=== PATIENT | female | born 1945 | race Caucasian/White ===

== ENCOUNTER 2020-01-18 21:48 | Inpatient (IN) | payer MEDICARE, MEDICAID ==
[~2020-01-18] VITALS: Ht 175.3 cm; Wt 121.1 kg
[~2020-01-18 21:48] MED LIST: ASPI-498 PO; BENA10TA9 PO; DIP25C PO; FUR40T PO; NITR0.4S29 SL; POT20T PO
[2020-01-18] MEDS ORDERED: ACETAMINOPHEN 500 MG TAB PO ONE (22:15)
[2020-01-18] MEDS ORDERED: SODIUM CHLORIDE 0.9% 500 ML IV ONE (22:15)
[2020-01-18] MEDS ORDERED: FUROSEMIDE 40 MG/4 ML VIAL IV ONE (22:45)
[2020-01-18 23:02] LABS: Basophils # (auto) 0 10 ^3/uL (0-0.2); Basophils % (auto) 0.5 % (0.0-2.0); Eosinophils # (auto) 0.3 10 ^3/uL (0-0.8); Eosinophils % (auto) 4.1 % (0.0-7.0); Hematocrit 42.3 % (36.0-46.0); Lymphocytes # (auto) 1.4 10 ^3/uL (0.4-5.4); Lymphocytes % (auto) 21.8 % (10.0-50.0); Mean Corpuscular Hemoglobin 31.2 pg (28.0-32.0); Mean Corpuscular Hgb Conc. 33.1 g/dL (32.0-36.0); Mean Corpuscular Volume 94.2 fL (80.0-100.0); Monocytes # (auto) 0.5 10 ^3/uL (0-1.3); Monocytes % (auto) 7.4 % (0.0-12.0); Neutrophils # (auto) 4.4 10 ^3/uL (1.6-8.6); Neutrophils % (auto) 66.2 % (37.0-80.0); Nucleated Red Blood Cells % 0.1 %; Platelet Count (auto) 194 10^3/uL (140-450); Red Blood Cells 4.49 10^6/uL (4.0-5.20); Red Cell Distribution Width 12.7 % (11.8-14.3); White Blood Cell 6.6 10^3/uL (4.4-10.8)
[2020-01-18 23:13] LABS: INR 1.01 (0.9-1.15); Partial Thromboplastin Time 25.2 sec (23.64-32.05)
[2020-01-18 23:14] LABS: Alanine Aminotransferase 17 U/L (13-56); Albumin 3.5 g/dL (3.4-5.0); Anion Gap 3 (5-15); Aspartate Aminotransferase 18 U/L (15-37); Blood Urea Nitrogen 12 mg/dL (7-18); Calcium 8.7 mg/dL (8.5-10.1); Carbon Dioxide 31 mmol/L (21-32); Chloride 104 mmol/L (98-107); GFR African American 163 mL/min; GFR Non-African American 134 mL/min; Glucose 134 mg/dL (74-106); Potassium 3.9 mmol/L (3.5-5.1); Sodium 138 mmol/L (136-145)
[2020-01-18 23:19] LABS: Alkaline Phosphatase 78 U/L (45-117); Bilirubin, Total 0.3 mg/dL (0.2-1.0); Total Protein 7.2 g/dL (6.4-8.2)
[2020-01-19 00:28] LABS: Urine Amorphous Crystal FEW /hpf (None Seen); Urine Bacteria FEW /hpf (None Seen); Urine Blood Negative /uL (Negative); Urine Specific Gravity 1.007 (1.001-1.035); Urine WBC 1 /hpf (0 - 5)
[2020-01-19] MEDS ORDERED: AZITHROMYCIN 500MG/ 250ML 250 ML IV ONE (00:30)
[2020-01-19] MEDS ORDERED: cefTRIAXone 1GM/50ML D5W 50 ML IV ONE (00:30)
[2020-01-19] MEDS ORDERED: ZINC SULFATE 220mg CAP or TAB PO ONE (00:30)
[2020-01-19] MEDS ORDERED: OSELTAMIVIR 75 MG CAP PO ONE (00:30)
[2020-01-19] MEDS ORDERED: SODIUM CHLORIDE 0.9% 1,000 ML IV SCH (00:55)
[2020-01-19] MEDS ORDERED: ACETAMINOPHEN 500 MG TAB PO PRN (01:00)
[2020-01-19] MEDS ORDERED: NITROGLYCERIN 0.4 MG SL TAB SL SCH (01:00)
[2020-01-19] MEDS ORDERED: IPRATROPIUM BROM 0.5 MG/2.5ML INH SOL NEB PRN (01:00)
[2020-01-19] MEDS ORDERED: hydrALAZINE HCL 25 MG TAB PO PRN (01:00)
[2020-01-19] MEDS ORDERED: ALBUTEROL SULF 2.5 MG/0.5ML(0.5%) NEB SOLN NEB PRN ×2 (01:00→18:00)
[2020-01-19] MEDS ORDERED: diphenhdrAMINE HCL 25 MG CAP PO PRN (01:00)
[2020-01-19 02:20] VITALS: BP 107/59
--- NOTE | 2020-01-19 02:20 | NUR ---
Telemetry admit from ER HOUSE,YOKO Pascal admitted to Telemetry unit after SBAR received. Patient oriented to SUDEEP BAZAN, primary RN, unit, room, bed, and unit policies regarding patient care and visiting hours. Patient now on continuous telemetry monitoring, tele box #5 and telemetry reading on arrival to unit is sinus rhythm with heart rate at 67. Patient placed on bedside oxygen, weighed by bedscale and encouraged to call as needed. All questions and concerns addressed, patient verbalized understanding. Bed is locked in lowest position, side rails x 2 are up, call light is within reach, and bed alarm is on.
--- NOTE | 2020-01-19 03:00 | NUR ---
Incentive Spirometer Educated patient on how to use and how often to use incentive spirometer, patient verbalized understanding and returned demonstration. Patient was able to raise marker to 500ml.
--- NOTE | 2020-01-19 03:34 | NUR ---
MRSA SWAB COLLECTED AND SENT TO LAB
[2020-01-19] MEDS ORDERED: FURO20TA3 PO ×2 (03:59→11:12)
[2020-01-19] MEDS ORDERED: APIX2.5T PO (03:59)
[2020-01-19] MEDS ORDERED: ALBU2TAB4 PO (03:59)
[2020-01-19] MEDS ORDERED: CLON0.1T PO (04:00)
--- NOTE | 2020-01-19 04:20 | NUR ---
Pericare Patient noted to have white vaginal discharge. Pericare provided.
--- NOTE | 2020-01-19 04:25 | NUR ---
PICTURES Patient noted to have erythema to left heel. Patient reports she has a healed pressure ulcer to left calf. Pictures taken for reference.
--- NOTE | 2020-01-19 04:30 | NUR ---
URINALYSIS COLLECTED AND SENT TO LAB.
[2020-01-19 04:56] LABS: Urine Bacteria FEW /hpf (None Seen); Urine Blood 1+ /uL (Negative); Urine Hyaline Cast MOD /lpf (0 - 2); Urine Mucus FEW (None Seen); Urine Specific Gravity 1.007 (1.001-1.035); Urine WBC 5 /hpf (0 - 5)
--- NOTE | 2020-01-19 05:50 | NUR ---
BLOOD DRAW Blood drawn and sent to lab via bullet.
[2020-01-19 06:00] VITALS: BP 127/56
[2020-01-19] MEDS ORDERED: ALBUTEROL SULF HFA 90MCG INH 200DOSE IN SCH ×3 (06:00)
[2020-01-19 06:06] LABS: Basophils # (auto) 0 10 ^3/uL (0-0.2); Basophils % (auto) 0.2 % (0.0-2.0); Eosinophils # (auto) 0.3 10 ^3/uL (0-0.8); Eosinophils % (auto) 3.2 % (0.0-7.0); Hemoglobin 13.3 g/dL (12.2-16.2); Lymphocytes # (auto) 1.2 10 ^3/uL (0.4-5.4); Lymphocytes % (auto) 15.7 % (10.0-50.0); Mean Corpuscular Hemoglobin 31.7 pg (28.0-32.0); Monocytes # (auto) 0.5 10 ^3/uL (0-1.3); Monocytes % (auto) 6.9 % (0.0-12.0); Neutrophils # (auto) 5.8 10 ^3/uL (1.6-8.6); Nucleated Red Blood Cells % 0.1 %; Platelet Count (auto) 172 10^3/uL (140-450); Red Blood Cells 4.19 10^6/uL (4.0-5.20); Red Cell Distribution Width 12.9 % (11.8-14.3); White Blood Cell 7.9 10^3/uL (4.4-10.8)
[2020-01-19 06:22] LABS: Lactic Acid w/Reflex 2.1 mmol/L (0.4-2.0); Potassium 3.5 mmol/L (3.5-5.1)
[2020-01-19 06:38] LABS: Albumin 3.2 g/dL (3.4-5.0); BUN/Creatinine Ratio 24.1; Bilirubin, Total 0.3 mg/dL (0.2-1.0); CRP High Sensitivity 0.27 mg/dL (< 0.3); Calcium 8.4 mg/dL (8.5-10.1); Magnesium 1.9 mg/dL (1.6-2.6); Total Protein 6.4 g/dL (6.4-8.2)
[2020-01-19 08:00] VITALS: BP 133/66
[2020-01-19] MEDS: ZINC SULFATE 220mg CAP or TAB PO SCH (09:27)
[2020-01-19] MEDS: FUROSEMIDE 40 MG TAB PO SCH (09:27)
[2020-01-19] MEDS: POTASSIUM CHL 20 Meq TABLET PO SCH (09:27)
[2020-01-19] MEDS: ASPirin-EC 81 mg tab PO SCH (09:27)
[2020-01-19] MEDS: CHOLECALCIFEROL (VITD3) 1,000IU=25mCg TAB PO SCH (09:28)
[2020-01-19] MEDS: ENOXAPARIN SOD 40 MG/0.4 ML SYRINGE SC SCH (09:28)
[2020-01-19] MEDS: ASCORBIC ACID 1,000 MG TAB PO SCH (09:28)
[2020-01-19] MEDS: BENAZEPRIL HCL 10 MG TAB PO SCH (09:28)
[2020-01-19] MEDS ORDERED: AZITHROMYCIN 500MG/D5WorNS 250ml IV SCH (10:00)
[2020-01-19 10:34] VITALS: BP 136/68
[2020-01-19] MEDS ORDERED: APIX5TAB PO (11:04)
[2020-01-19] MEDS ORDERED: FURO40TA4 PO ×2 (11:13→11:15)
[2020-01-19] MEDS ORDERED: ALBU0.084 NEB (11:22)
[2020-01-19] MEDS ORDERED: ALBUAER3 IN (11:29)
[2020-01-19] MEDS ORDERED: BENA10TA9 PO (11:40)
--- NOTE | 2020-01-19 11:41 | NUR ---
Received referral for Line Controller. Pt does not want to return to [facility]. Pt prefers to return home. Pt is currently waiting for results on her Covid19. Pt lives alone but has an [facility] worker who is with her 5 hours a day. She also has 4 other caregivers who she pays privately for additional care. Pt is on [address] Luz is her physician. Pt states she can't stand and only uses a gurney. Informed pt that she will have to pay privately for transport to get home. Explained to pt that psychosocial rehabilitation counselor can work on that as soon as she is cleared to return home. Addendum: 01/19/20 at 1155 by GABRIELLE GERMAN Amended: Links added.
--- NOTE | 2020-01-19 14:13 | NUR ---
PT TRANSFERRED TO ROOM 205 REPORT GIVEN TO CATA BARBOUR. NO S/S OF DISTRESS NOTED. PT TRANSFERRED FROM WHEELCHAIR TO BED.
--- NOTE | 2020-01-19 14:25 | NUR ---
Transfer from [facility] Patient arrived on floor to room. She is alert and oriented. Coarse lung sounds. She was oriented to the nurse, SHELL MOLD BONDER, room, and unit. Call light within reach. HOB elevated. Phone within reach per patient request. VS taken by SHELL MOLD BONDER. Will continue to monitor patient.
[2020-01-19 15:18] VITALS: BP 106/68
--- NOTE | 2020-01-19 17:50 | NUR ---
SOB/upset Patient is c/o SOB and said that she has asthma. She said she was on breathing treatments every 4 hours prior to coming to this floor. This nurse checked the orders and her PRN breathing treatments were D/C'd. Contacted Marcos Cabral (on-call) who ordered PRN Atrovent and Albuterol [id number]. She also keeps saying that she has a throat infection and not the flu and that it doesn't feel like the flu. This nurse had informed her that the test showed she is positive for Flu A/B and is being treated for it. She said she was hooked up to an antibiotic and wanted to know why it wasn't running right now. There is no antibiotic due at this time, the next does is due at 2200. Patient was informed. Addendum: 01/19/20 at 1753 by CATA SILVA RN Correction: there is a breathing treatment scheduled at 2200. The next antibiotic is not until 1000 tomorrow.
[2020-01-19] MEDS: IPRATROPIUM BROM 0.5 MG/2.5ML INH SOL NEB PRN ×2 (18:21→22:46)
--- NOTE | 2020-01-19 19:15 | NUR ---
Opening note pt A&Ox4. respirations are even and non labored on 2Lnc. lung sounds are coarse upon inspiration and expiration. Swanson catheter in place, without kinks, patent, and draining to gravity below bladder. pt denies pain at this time. pt is soiled, and will be cleaned and changed at this time. bed is in low locked position, call light within reach.
[2020-01-19 21:48] VITALS: BP 117/72
[2020-01-19] MEDS: ALBUTEROL SULF 2.5 MG/0.5ML(0.5%) NEB SOLN NEB SCH (22:46)
--- NOTE | 2020-01-20 05:15 | NUR ---
xray at bedside
--- NOTE | 2020-01-20 05:20 | NUR ---
pt c/o pain in bladder area. pt has fischer catheter in place. pt would like fischer removed, says it is just too painful, and she is crying in pain. Fischer removed at this time.
[2020-01-20 05:24] VITALS: BP 128/50
--- NOTE | 2020-01-20 06:25 | NUR ---
pt explains that her back is itching, wants marysol
[2020-01-20] MEDS: ALBUTEROL SULF 2.5 MG/0.5ML(0.5%) NEB SOLN NEB SCH ×3 (07:34→22:37)
[2020-01-20 08:00] VITALS: BP 114/51
[2020-01-20] MEDS ORDERED: ACETAMINOPHEN/CODEINE#3 (300/30mg) TAB PO PRN (09:15)
[2020-01-20] MEDS: BENAZEPRIL HCL 10 MG TAB PO SCH (09:54)
[2020-01-20] MEDS: FUROSEMIDE 40 MG TAB PO SCH (09:55)
[2020-01-20] MEDS: ZINC SULFATE 220mg CAP or TAB PO SCH (09:55)
[2020-01-20] MEDS: ASPirin-EC 81 mg tab PO SCH (09:55)
[2020-01-20] MEDS: OSELTAMIVIR 30 MG CAP PO SCH ×2 (09:57→22:19)
[2020-01-20] MEDS: POTASSIUM CHL 20 Meq TABLET PO SCH (10:00)
[2020-01-20] MEDS: ASCORBIC ACID 1,000 MG TAB PO SCH (10:00)
--- NOTE | 2020-01-20 10:05 | NUR ---
spoke with Dr. Sandra Luz, made aware that pt is refusing IV insertion, refusing IV antibiotic, Dr. Luz ordered to change IV antibiotic to PO, order received and read back.
[2020-01-20] MEDS: ENOXAPARIN SOD 40 MG/0.4 ML SYRINGE SC SCH (10:14)
[2020-01-20] MEDS: CHOLECALCIFEROL (VITD3) 1,000IU=25mCg TAB PO SCH (10:14)
[2020-01-20 10:18] LABS: Basophils # (auto) 0.1 10 ^3/uL (0-0.2); Basophils % (auto) 0.9 % (0.0-2.0); Eosinophils # (auto) 0.3 10 ^3/uL (0-0.8); Eosinophils % (auto) 3.5 % (0.0-7.0); Hematocrit 38.1 % (36.0-46.0); Hemoglobin 12.4 g/dL (12.2-16.2); Lymphocytes # (auto) 2.1 10 ^3/uL (0.4-5.4); Mean Corpuscular Hemoglobin 30.5 pg (28.0-32.0); Mean Corpuscular Hgb Conc. 32.6 g/dL (32.0-36.0); Mean Corpuscular Volume 93.8 fL (80.0-100.0); Monocytes # (auto) 0.7 10 ^3/uL (0-1.3); Monocytes % (auto) 8.8 % (0.0-12.0); Neutrophils # (auto) 4.6 10 ^3/uL (1.6-8.6); Neutrophils % (auto) 59.8 % (37.0-80.0); Platelet Count (auto) 185 10^3/uL (140-450); Red Blood Cells 4.06 10^6/uL (4.0-5.20); Red Cell Distribution Width 12.9 % (11.8-14.3); White Blood Cell 7.6 10^3/uL (4.4-10.8)
[2020-01-20] MEDS ORDERED: AZITHROMYCIN 250 MG TAB PO SCH (10:45)
[2020-01-20 11:04] LABS: Albumin 3.2 g/dL (3.4-5.0); Magnesium 1.8 mg/dL (1.6-2.6); Potassium 3.7 mmol/L (3.5-5.1)
[2020-01-20 11:06] LABS: BUN/Creatinine Ratio 33.3
[2020-01-20 11:09] LABS: Bilirubin, Total 0.4 mg/dL (0.2-1.0); Total Protein 6.6 g/dL (6.4-8.2)
[2020-01-20 11:59] VITALS: BP 138/68
[2020-01-20] MEDS ORDERED: CEPHALEXIN 250 MG CAP PO SCH (12:00)
[2020-01-20] MEDS ORDERED: ceFAZolin 1GM/50ML 50 ML IV SCH (12:00)
--- NOTE | 2020-01-20 12:37 | NUR ---
Nutrition Assessment Notes Please refer to link for full assessment notes. Est energy needs: 6987-6020 kcals (14-18 kcal/kgBW) Est protein needs: 80-88 gms/day (1.0-1.1 gm/kgBW) Will continue to monitor and reassess prn. Addendum: 01/20/20 at [address] Amended: Links added.
--- NOTE | 2020-01-20 13:33 | NUR ---
SPOKE WITH DR. Sandra NEAL MADE AWARE PHARMACY CALLED ASKING IF MEDICATIONS FOR COVID CAN BE DISCONTINUED SINCE PT IS NEGATIVE FOR COVID - TYLENOL 1000MG, ZINC, VITAMIN C, VITAMIN D, PLAQUENIL, AND AZITHROMYCIN. DR. Sandra NEAL SAID OKAY TO DISCONTINUE.
[2020-01-20 16:52] VITALS: BP 143/59
--- NOTE | 2020-01-20 18:30 | NUR ---
URINE SAMPLE FOR CULTURE SENT TO LAB.
--- NOTE | 2020-01-20 19:10 | NUR ---
Opening Shift Note Received report from chris Morris RN. Assumed care of patient, awake and alert. On droplet isolation precaution for Influenza A & B. No S/S of distress/SOB, but c/o soar throat. Offered pain medication but patient refused this time. Instructed on POC and to call for assist PRN, will continue to monitor for changes Q1hr and PRN. Bed placed in lowest position, bed alarm turned on and call light within reach.
[2020-01-20 21:49] VITALS: BP 127/54
[2020-01-20] MEDS: CEPHALEXIN 250 MG CAP PO SCH (22:19)
--- NOTE | 2020-01-21 04:00 | NUR ---
Sputum specimen sent to lab
[2020-01-21 04:44] VITALS: BP 146/77
[2020-01-21] MEDS: ALBUTEROL SULF 2.5 MG/0.5ML(0.5%) NEB SOLN NEB SCH ×3 (06:47→22:13)
[2020-01-21 08:00] VITALS: BP 128/74
--- NOTE | 2020-01-21 08:15 | NUR ---
Opening Shift Note Assumed care of patient, awake, alert, and oriented. No S/S of distress/SOB or pain. Bed in lowest/locked position, bed rails up x2, call light within reach. Instructed on POC and to call for assist PRN. Will continue to monitor for changes Q1hr and PRN.
[2020-01-21] MEDS: FUROSEMIDE 40 MG TAB PO SCH (10:00)
[2020-01-21] MEDS: ASPirin-EC 81 mg tab PO SCH (10:00)
[2020-01-21] MEDS: POTASSIUM CHL 20 Meq TABLET PO SCH (10:00)
--- NOTE | 2020-01-21 10:00 | NUR ---
BATH BED BATH PERFORMED. PATIENT TOLERATED WELL
[2020-01-21] MEDS: CEPHALEXIN 250 MG CAP PO SCH ×2 (10:02→22:10)
[2020-01-21] MEDS: OSELTAMIVIR 30 MG CAP PO SCH ×2 (10:03→22:07)
[2020-01-21] MEDS: ENOXAPARIN SOD 40 MG/0.4 ML SYRINGE SC SCH (10:03)
[2020-01-21] MEDS: BENAZEPRIL HCL 10 MG TAB PO SCH (10:03)
--- NOTE | 2020-01-21 11:18 | NUR ---
re-assessment Patient is a 74 year old female who is alert and oriented. Prior to this admission patient was skilled at [facility]. Per patient she does not want to return to [facility]. Patient informed me she will go home on discharge and will pay for transport. Patient informed me she has a SS caregiver for the day and will pay for her caregiver at night. Patient informed me she has a fww, wheelchair, hospital bed, shower chair, 02, and nebulizer for home. Patients PCP is Dr Luz. Patient tested negative for Covid 19. Patient is positive for flu. Patient will benefit from home health safety and PT on discharge. I informed patient she has a right to speak to a social media developer regarding all care. I informed patient she has a right to participate in any and all discharge planning. Patient does not have a POA and advanced directive. I have offered patient information on POA and advanced directives. I informed the patient the advantages and benefits of having an Advanced Directive. Patient verbalized understanding and agreed to discharge plan. Addendum: 01/21/20 at 1121 by Abeba GERMAN Amended: Links added.
[2020-01-21 12:00] VITALS: BP 134/61
[2020-01-21 16:53] VITALS: BP 134/67
[2020-01-21 20:00] VITALS: BP 150/74
--- NOTE | 2020-01-21 20:00 | NUR ---
Opening Shift Note Assumed care of patient, awake and alert. No S/S of distress/SOB or pain. Instructed on POC and to call for assist PRN, will continue to monitor for changes Q1hr and PRN.
[2020-01-21 22:00] VITALS: BP 150/74
[2020-01-22] MEDS ORDERED: SODIUM CHLORIDE 0.9 % NEB SOLN 3ML NEB ONE ×2 (05:16→13:34)
[2020-01-22 05:37] VITALS: BP 159/74
[2020-01-22] MEDS: ALBUTEROL SULF 2.5 MG/0.5ML(0.5%) NEB SOLN NEB SCH ×4 (05:56→22:19)
--- NOTE | 2020-01-22 07:48 | NUR ---
Received patient with no IV access. Patient refused IV insertion. is aware.
--- NOTE | 2020-01-22 07:50 | NUR ---
Patient in bed, awake, on O2 at 2 LPM, crackles noted on breathing. No acute distress noted. Patient is obese. Edema noted on bilateral lower extremities. Patient on isolation precautions for Flu A&B.
[2020-01-22 09:00] VITALS: BP 143/77
--- NOTE | 2020-01-22 09:00 | NUR ---
Patient had a bowel movement. Large, brown, soft, formed stools noted on the pad cair. JONATHAN Rowland and I turned and cleaned the patient, changed the bed linen.
[2020-01-22] MEDS: ASPirin-EC 81 mg tab PO SCH (10:00)
[2020-01-22] MEDS: ENOXAPARIN SOD 40 MG/0.4 ML SYRINGE SC SCH (10:39)
[2020-01-22] MEDS: CEPHALEXIN 250 MG CAP PO SCH ×2 (10:40→21:33)
[2020-01-22] MEDS: BENAZEPRIL HCL 10 MG TAB PO SCH (10:40)
--- NOTE | 2020-01-22 10:40 | NUR ---
Patient refused Lasix and Potassium at this time, insisted she takes it at 9:00 pm. Patient stated Lasix makes her pee a lot during the day. Will inform the MD.
--- NOTE | 2020-01-22 10:40 | NUR ---
Patient refused Aspirin. Risks and benefits explained, patient still refused, stated she already on Lovenox.
--- NOTE | 2020-01-22 10:50 | NUR ---
Patient wet the bed. Urine noted on the pad cair. JONATHAN Summer and I turned the patient, cleaned the patient, changed the pad cair.
--- NOTE | 2020-01-22 11:20 | NUR ---
Sandra Urbina at bedside. made aware patient refused Lasix and Potassium during the day because Lasix makes her pee a lot. Patient insisted Lasix and Potassium at 9:[address] Luz said patient can have the medications at 9:00 pm.
--- NOTE | 2020-01-22 11:22 | NUR ---
Sandra Urbina ordered Pipe Cleaning Machine Operator Consult for [facility] for physical therapy at home as requested by the patient. Patient for discharge on Friday, January 24, [address] Luz.
--- NOTE | 2020-01-22 11:45 | NUR ---
Patient had another bowel movement. Large, brown, soft, formed stools noted on the pad. JONATHAN Rowland and I turned and cleaned the patient.
--- NOTE | 2020-01-22 12:47 | NUR ---
Paged Non Licensed Nuclear Equipment Operator/Dry Kiln Feeder admissions evaluator.
[2020-01-22 12:51] VITALS: BP 156/83
--- NOTE | 2020-01-22 13:10 | NUR ---
Punch Out Crew Member Holly Fisher called back. Holly made aware that Sandra Urbina ordered Management Coordinator Consult for physical therapy with [facility]; patient for discharge on Friday. Holly said to fax the faces sheet, order and H&P to . Holly to follow it up on Friday. Addendum: 01/22/20 at 1831 by Racquel Thapa RN face sheet
--- NOTE | 2020-01-22 13:20 | NUR ---
Sent the copies of face sheet, orders for home health for physical therapy and H&P to .
[2020-01-22 17:00] VITALS: BP 158/67
[2020-01-22] MEDS: ACETYLCYSTEINE 10 %(100MG/ML) SOL 4ML NEB SCH ×2 (19:05→22:19)
--- NOTE | 2020-01-22 19:25 | NUR ---
Opening Shift Note Assumed care of patient after receiving report from KM Clement. Patient laying in bed comfortably, awake and alert. No S/S of distress/SOB or pain. Instructed on POC and to call for assist PRN, will continue to monitor for changes Q1hr and PRN.
--- NOTE | 2020-01-22 19:58 | NUR ---
[facility] HH called Li from [facility] called to follow up on receiving fax for patient needing home health. Home health for PT verified.
[2020-01-22] MEDS: FUROSEMIDE 40 MG TAB PO SCH (21:00)
[2020-01-22] MEDS: POTASSIUM CHL 20 Meq TABLET PO SCH (21:00)
[2020-01-22] MEDS: methylPREDNISolone SOD SUCC 40 MG/ML VL IV SCH (21:55)
--- NOTE | 2020-01-22 21:57 | NUR ---
Scheduled medications refused Patient refused scheduled 2100 medication of potassium and lasix. Patient stated she did not want them and she is peeing too much and only takes lasix when it is needed. Patient educated on need of lasix and it being a scheduled medication, patient verbalized understanding and continued to state she did not want it. Medication wasted, will continue to monitor.
[2020-01-22 22:00] VITALS: BP 150/66
--- NOTE | 2020-01-22 22:06 | NUR ---
Alejandra care Patient was noted to have voided on underpad/chucks. Patient was cleaned and clean dry chucks replaced. Moisture barrier cream applied for irritation to skin.
[2020-01-23] MEDS: ACETYLCYSTEINE 10 %(100MG/ML) SOL 4ML NEB SCH ×5 (02:32→22:09)
[2020-01-23] MEDS: ALBUTEROL SULF 2.5 MG/0.5ML(0.5%) NEB SOLN NEB SCH ×5 (02:32→22:09)
[2020-01-23 05:00] VITALS: BP 141/65
--- NOTE | 2020-01-23 05:20 | NUR ---
Alejandra care Alejandra care performed, no BM noted; yellow urine only. Patient was cleaned and clean, dry chucks replace. Patient repositioned in bed for comfort. Patient tolerated intervention well no s/s of distress noted.
--- NOTE | 2020-01-23 06:02 | NUR ---
MINESH Frias from lab at bedside with patient. Per Altagracia, patient refusing blood draw from hand with only available vein to draw from. Patient resisting care from lab. Altagracia stated someone would try to redraw later.
--- NOTE | 2020-01-23 07:45 | NUR ---
Patient in bed, awake, on O2 at 2LPM. No IV line available. Patient refused to have an IV insertion. No acute distress noted. Patient is bedbound.
[2020-01-23] MEDS: methylPREDNISolone SOD SUCC 40 MG/ML VL IV SCH ×2 (08:51→21:07)
[2020-01-23 09:00] VITALS: BP 140/71
[2020-01-23 09:07] LABS: Basophils # (auto) 0 10 ^3/uL (0-0.2); Basophils % (auto) 0.8 % (0.0-2.0); Eosinophils # (auto) 0.2 10 ^3/uL (0-0.8); Eosinophils % (auto) 2.9 % (0.0-7.0); Hematocrit 36.3 % (36.0-46.0); Hemoglobin 12.1 g/dL (12.2-16.2); Lymphocytes # (auto) 1.6 10 ^3/uL (0.4-5.4); Lymphocytes % (auto) 27.8 % (10.0-50.0); Mean Corpuscular Hemoglobin 31.7 pg (28.0-32.0); Mean Corpuscular Hgb Conc. 33.3 g/dL (32.0-36.0); Mean Corpuscular Volume 95.2 fL (80.0-100.0); Monocytes # (auto) 0.6 10 ^3/uL (0-1.3); Monocytes % (auto) 9.7 % (0.0-12.0); Neutrophils # (auto) 3.3 10 ^3/uL (1.6-8.6); Neutrophils % (auto) 58.8 % (37.0-80.0); Nucleated Red Blood Cells % 0.1 %; Platelet Count (auto) 171 10^3/uL (140-450); Red Blood Cells 3.81 10^6/uL (4.0-5.20); Red Cell Distribution Width 12.7 % (11.8-14.3); White Blood Cell 5.7 10^3/uL (4.4-10.8)
[2020-01-23 09:28] LABS: Calcium 8.9 mg/dL (8.5-10.1); Potassium 4.1 mmol/L (3.5-5.1)
[2020-01-23 09:31] LABS: Bilirubin, Total 0.3 mg/dL (0.2-1.0); Total Protein 6.4 g/dL (6.4-8.2)
[2020-01-23] MEDS: FUROSEMIDE 40 MG TAB PO SCH (10:00)
[2020-01-23] MEDS: POTASSIUM CHL 20 Meq TABLET PO SCH (10:00)
[2020-01-23] MEDS: ASPirin-EC 81 mg tab PO SCH (10:00)
--- NOTE | 2020-01-23 10:30 | NUR ---
Patient refused Aspirin, Lasix and Potassium. Will inform Alexandra Urbina.
[2020-01-23] MEDS: BENAZEPRIL HCL 10 MG TAB PO SCH (10:35)
[2020-01-23] MEDS: ENOXAPARIN SOD 40 MG/0.4 ML SYRINGE SC SCH (10:35)
[2020-01-23] MEDS: CEPHALEXIN 250 MG CAP PO SCH ×2 (10:36→21:07)
--- NOTE | 2020-01-23 12:00 | NUR ---
Sandra Urbina at bedside. made aware patient kept refusing the Aspirin, Lasix and Potassium. Patient said there's another doctor who came over.
--- NOTE | 2020-01-23 12:18 | NUR ---
Sandra Urbina made aware that Dr. Bernard ([facility]) has notes and orders put in.
--- NOTE | 2020-01-23 12:45 | NUR ---
Sandra Urbina explained to patient the Laboratory results, urine culture results. Patient said she needs transport for discharge tomorrow, patient stated she has a check to pay for it. Will put in Equipment Technician Consult for transport.
--- NOTE | 2020-01-23 12:50 | NUR ---
Sandra Urbina ordered Eliquis 5 mg BID.
[2020-01-23 13:00] VITALS: BP 158/95
--- NOTE | 2020-01-23 14:20 | NUR ---
Patient wet the bed. Yellowish urine noted on the pad cair. DOBIE MAN Summer and I turned and cleaned the patient, changed the gown and pad cair.
--- NOTE | 2020-01-23 15:10 | NUR ---
Patient stated she needs a copy of her negative COVID-19 results on her discharge tomorrow because her landlady will not accept her back without it. Will inform the MD.
--- NOTE | 2020-01-23 15:20 | NUR ---
Called Sandra Urbina that patient requested to have a copy of the (-) COVID-19 results on her discharge tomorrow, Friday because her landlady will not accept her back without it. Dr. Luz ordered to give a copy of the COVID-19 results to patient on discharge tomorrow. Charge Nurse Tristin made aware.
[2020-01-23 17:00] VITALS: BP 160/82
--- NOTE | 2020-01-23 19:27 | NUR ---
Opening Shift Note Assumed care of patient after receiving report from KM Clement. Patient is awake and alert, resting in bed comfortably. No S/S of distress/SOB or pain. Instructed on POC and to call for assist PRN, call light within reach. Will continue to monitor for changes Q1hr and PRN.
[2020-01-23] MEDS: APIXABAN 5 MG TAB PO SCH (21:06)
[2020-01-23 22:16] VITALS: BP 155/77
[2020-01-24] VITALS (7 sets, daily range): BP systolic 140–157; BP diastolic 61–82
[2020-01-24] MEDS: ALBUTEROL SULF 2.5 MG/0.5ML(0.5%) NEB SOLN NEB SCH ×6 (01:57→21:40)
[2020-01-24] MEDS: ACETYLCYSTEINE 10 %(100MG/ML) SOL 4ML NEB SCH ×6 (01:57→21:40)
--- NOTE | 2020-01-24 06:59 | NUR ---
Care endorsed to KM Zapata. Patient resting in bed comfortably, bed in lowest position, call light within reach. No s/s of SOB, pain, or distress noted at this time.
--- NOTE | 2020-01-24 07:40 | NUR ---
Opening Shift Note Assumed care of patient noc shift rn. Patient is awake and alert, sitting up and eating. No S/S of distress/SOB or pain, crackles heard with productive coughing. Instructed on POC and to call for assist PRN, phone and call light within reach. Will continue to monitor for changes Q1hr and PRN.
--- NOTE | 2020-01-24 08:43 | NUR ---
Weekend commercial construction estimator 01/22/20 I received a page from nurse Clement letting me know that patient is to discharge Friday with [facility] for physical therapy. I asked nurse Clement fax information to [facility] and let her know that this can be followed up on Friday.
--- NOTE | 2020-01-24 09:00 | NUR ---
Pt refused PT tx for today. Addendum: 01/24/20 at 1128 by Ozzie Clinton INTERACTIVE GRAPHIC DESIGNER Amended: Links added.
[2020-01-24] MEDS: methylPREDNISolone SOD SUCC 40 MG/ML VL IV SCH ×2 (09:24→21:59)
[2020-01-24] MEDS: BENAZEPRIL HCL 10 MG TAB PO SCH (09:25)
[2020-01-24] MEDS: ASPirin-EC 81 mg tab PO SCH (09:28)
[2020-01-24] MEDS: FUROSEMIDE 40 MG TAB PO SCH (09:29)
[2020-01-24] MEDS: POTASSIUM CHL 20 Meq TABLET PO SCH (09:29)
[2020-01-24] MEDS: APIXABAN 5 MG TAB PO SCH ×2 (09:30→21:59)
[2020-01-24] MEDS: CEPHALEXIN 250 MG CAP PO SCH ×2 (09:31→21:59)
--- NOTE | 2020-01-24 09:34 | NUR ---
Patient refused for new peripheral IV access to be inserted, solu-medrol wasted. Also refused Aspirin, Klor-con and lasix at this time. patient educated on medication compliance. will continue to monitor q1hr and prn.
--- NOTE | 2020-01-24 15:14 | NUR ---
D/C Planning Per SS consult for home health with [facility] for physical therapy. Information and choice letter was given to patient via phone. Per patient she would like [facility] that doctor recommended. Patient informed me she will need transportation home. Patient stated she would pay. Provided patient with chau quote from [employer] ([id number].) and [employer] ([phone].). Patient state she would like [employer] to transport her home via gurney. Patient verbalize understanding d/c plan. Placed call to Victor Hugo with [employer] [place]:( [phone]) advising him to arrange transportation at 16:00 via gurney. Per Victor Hugo with [employer] the only open availability for pickle processor is at 17:00. Faxed clinical information to [facility]. Per Maria Esther with [facility] patient has been accepted and service to start within 24-48hrs upon d/c day. Informed KM Zapata.
--- NOTE | 2020-01-24 16:50 | NUR ---
PATIENT IS CURRENTLY REFUSING TO SIGN DISCHARGE PAPERWORK FOR TRANSPORT HEEL SEAT FITTER AT 1700. PER PATIENT SHE WANTS TO LEAVE IN THE MORNING WHEN SHE HAS ASSISTANCE. CHARGE NURSE MADE AWARE. CASE MANAGEMENT GASOLINE POWER SHOVEL OPERATOR PAGED.
--- NOTE | 2020-01-24 17:25 | NUR ---
WILMA AND SPOKE TO DR. Sandra NEAL ABOUT PATIENT'S REFUSAL OF DISCHARGE TODAY. PER WHATEVER ARRANGEMENT THE CASE MANAGEMENT MAKES IS OK.
--- NOTE | 2020-01-24 18:15 | NUR ---
SPOKE TO ON-CALL CASE MANAGEMENT, GAEL. PER CASE MANAGEMENT SHE SPOKE TO PATIENT AND INFORMED HER ARRANGEMENT WILL BE MADE TO TRANSPORT PATIENT TOMORROW MORNING 01/25/20.
--- NOTE | 2020-01-24 19:26 | NUR ---
Opening Shift Note Assumed care of patient after receiving report from KM Zapata. Patient awake and alert, resting in bed comfortably. No S/S of distress/SOB or pain. Call light within reach, instructed on POC and to call for assist PRN, will continue to monitor for changes Q1hr and PRN.
--- NOTE | 2020-01-25 01:58 | NUR ---
Alejandra care Alejandra care performed after patient urinated. Patient tolerated intervention well with no s/s of distress noted.
[2020-01-25 05:00] VITALS: BP 161/98
--- NOTE | 2020-01-25 05:46 | NUR ---
Elevated BP Patients BP was 161/98 with HR of 79. BP cuff readjusted and BP reassessed with reading of 153/73 HR 62. Patient stated that was fine and she was feeling okay. No medication given at this time as it is not indicated. Will continue to monitor.
--- NOTE | 2020-01-25 06:56 | NUR ---
Care endorsed to KM Zapata. Patient resting in bed comfortably in lowest possible position with x2 side rails and call light within reach.
[2020-01-25] MEDS: ALBUTEROL SULF 2.5 MG/0.5ML(0.5%) NEB SOLN NEB SCH ×2 (07:12→07:14)
[2020-01-25] MEDS: ACETYLCYSTEINE 10 %(100MG/ML) SOL 4ML NEB SCH ×2 (07:12→07:14)
--- NOTE | 2020-01-25 07:32 | NUR ---
Opening Shift Note Assumed care of patient noc shift rn. Patient is awake and alert and oriented x4, sitting for breakfast. No S/S of distress/SOB, reports generalized pain 8/10 pain but is refusing pain medication. Per patient she always have some pain but does not like taking pain medication. Instructed on POC and to call for assist PRN, phone and call light within reach. Will continue to monitor for changes Q1hr and PRN. Patient is awaiting discharge pickup, and wants to AM pickup.
[2020-01-25 08:00] VITALS: BP 153/84
[2020-01-25 08:56] VITALS: BP 153/84
[2020-01-25 09:30] VITALS: BP 153/84
[2020-01-25] MEDS: CEPHALEXIN 250 MG CAP PO SCH (09:53)
[2020-01-25] MEDS: APIXABAN 5 MG TAB PO SCH (09:53)
[2020-01-25] MEDS: BENAZEPRIL HCL 10 MG TAB PO SCH (09:54)
[2020-01-25] MEDS: FUROSEMIDE 40 MG TAB PO SCH (09:56)
[2020-01-25] MEDS: POTASSIUM CHL 20 Meq TABLET PO SCH (09:56)
[2020-01-25] MEDS: ASPirin-EC 81 mg tab PO SCH (09:56)
[2020-01-25] MEDS: methylPREDNISolone SOD SUCC 40 MG/ML VL IV SCH (09:57)
--- NOTE | 2020-01-25 10:00 | NUR ---
Per social insurance specialistCassidy, patient will be picked up by [employer] [facility] at 1100.
--- NOTE | 2020-01-25 10:19 | NUR ---
D/C Planning Placed call to Victor Hugo with [employer] [place]:) advising him to arrange transportation at 011:00 via [employer]. Informed KM Zapata.
--- NOTE | 2020-01-25 11:00 | NUR ---
RN stated "She's being D/C'd home,she's not going to do any thing." Addendum: 01/25/20 at 1139 by Ozzie Clinton COPY COORDINATOR Amended: Links added.
--- NOTE | 2020-01-25 11:57 | NUR ---
Patient discharged home and picked up by [employer]. Oxygen tank sent with patient and [employer] company would return to [facility] per social work coordinator, Cassidy. real estate office supervisor also made aware. Patient is alert and oriented on time of discharge. All pertinent discharge instruction and paperwork received and signed by patient. Patient verbalized understanding. Tele #[id number] returned to ICU.
== END 2020-01-25 11:47 | disposition home health service (06) | DRG 193 ==
LOC: ER 21:48 → EDBD 21:48 → TELE-EAST 21:49 → UNDOADMIN 21:49 → TELE 21:49 → TELE-CENTR 01-19 14:45
PROVIDERS: ADMIT Hospitalist; ATTEND Specialist
DX: J10.00 Influenza due to other identified influenza virus with unspecified type of pneumonia (principal); J96.20 Acute and chronic respiratory failure, unspecified whether with hypoxia or hypercapnia; N39.0 Urinary tract infection, site not specified; J44.0 Chronic obstructive pulmonary disease with (acute) lower respiratory infection; J44.1 Chronic obstructive pulmonary disease with (acute) exacerbation; J98.11 Atelectasis; I50.32 Chronic diastolic (congestive) heart failure; E66.01 Morbid (severe) obesity due to excess calories; J40 Bronchitis, not specified as acute or chronic; Z96.659 Presence of unspecified artificial knee joint; I11.0 Hypertensive heart disease with heart failure; I25.10 Atherosclerotic heart disease of native coronary artery without angina pectoris; I48.91 Unspecified atrial fibrillation; Z20.828 Contact with and (suspected) exposure to other viral communicable diseases; R00.1 Bradycardia, unspecified; Z68.39 Body mass index [BMI] 39.0-39.9, adult; Z88.2 Allergy status to sulfonamides; Z88.8 Allergy status to other drugs, medicaments and biological substances; Z87.898 Personal history of other specified conditions; Z88.1 Allergy status to other antibiotic agents; Z88.5 Allergy status to narcotic agent; Z88.0 Allergy status to penicillin; Z91.013 Allergy to seafood; Z79.01 Long term (current) use of anticoagulants; Z87.891 Personal history of nicotine dependence; Z78.9 Other specified health status; Z90.710 Acquired absence of both cervix and uterus; Z95.0 Presence of cardiac pacemaker
CPT/HCPCS: 36415; 51702; 71045; 80053; 81001; 82728; 83605; 83615; 83735; 83880; 84443; 84484; 85025; 85379; 85610; 85730; 86141; 87040; 87070; 87077; 87081; 87086; 87205; 87804; 87880; 93005; 94640; 96365; 96368; 96375; 97110; 97530; G0378; G9035; J0696

== ENCOUNTER 2020-03-09 11:46 | Inpatient (IN) | payer MEDICARE, MEDICAID ==
[~2020-03-09] VITALS: Ht 172.7 cm; Wt 119.3 kg
[~2020-03-09 11:46] MED LIST changes: +ALBU0.084 NEB; +ALBUAER3 IN; +APIX5TAB PO; -ASPI-498 PO; -FUR40T PO; +FURO40TA4 PO
[2020-03-09 13:37] LABS: INR 1.04 (0.9-1.15); Partial Thromboplastin Time 23.9 sec (23.64-32.05)
[2020-03-09 13:38] LABS: Magnesium 2.1 mg/dL (1.6-2.6)
[2020-03-09 13:58] LABS: Albumin 3.2 g/dL (3.4-5.0); Calcium 8.4 mg/dL (8.5-10.1)
[2020-03-09 14:00] LABS: Basophils # (auto) 0 10 ^3/uL (0-0.2); Basophils % (auto) 0.2 % (0.0-2.0); Eosinophils # (auto) 0.1 10 ^3/uL (0-0.8); Eosinophils % (auto) 1.6 % (0.0-7.0); Hematocrit 39.3 % (36.0-46.0); Lymphocytes # (auto) 1.2 10 ^3/uL (0.4-5.4); Lymphocytes % (auto) 16.2 % (10.0-50.0); Mean Corpuscular Hemoglobin 30.7 pg (28.0-32.0); Mean Corpuscular Hgb Conc. 33.1 g/dL (32.0-36.0); Mean Corpuscular Volume 92.8 fL (80.0-100.0); Monocytes # (auto) 0.5 10 ^3/uL (0-1.3); Monocytes % (auto) 7.4 % (0.0-12.0); Neutrophils # (auto) 5.3 10 ^3/uL (1.6-8.6); Neutrophils % (auto) 74.6 % (37.0-80.0); Nucleated Red Blood Cells % 0.1 %; Platelet Count (auto) 165 10^3/uL (140-450); Red Blood Cells 4.23 10^6/uL (4.0-5.20); White Blood Cell 7.2 10^3/uL (4.4-10.8)
[2020-03-09 14:01] LABS: Bilirubin, Total 0.5 mg/dL (0.2-1.0); Total Protein 5.9 g/dL (6.4-8.2)
[2020-03-09] MEDS ORDERED: ONDANSETRON HCL 4 MG/2 ML VIAL IV PRN (15:45)
[2020-03-09] MEDS ORDERED: ALBUTEROL SULF HFA 90MCG INH 200DOSE IN PRN (15:45)
[2020-03-09] MEDS ORDERED: ACETAMINOPHEN/CODEINE#3 (300/30mg) TAB PO PRN (15:45)
[2020-03-09] MEDS ORDERED: diphenhdrAMINE HCL 25 MG CAP PO PRN (15:45)
[2020-03-09] MEDS ORDERED: NITROGLYCERIN 0.4 MG SL TAB SL PRN (15:45)
[2020-03-09 18:10] VITALS: BP 158/77
--- NOTE | 2020-03-09 18:26 | NUR ---
RT NOTE PT WAS SEEN BY RT FOR PRN HHN TX ASSESSMENT. PT IS AWAKE AND ALERT WITHOUT SOB OR DISTRESS NOTED IN ER ROOM 5. PT REQUESTS TX AT5 THIS TIME. STATES SHE TAKE ALBUTEROL AT HOME. PT HAS A PRODUCTIVE COUGH NOTED WITH THICK, CLEAR RETURN. CONT ORDERED Addendum: 03/09/20 at 1847 by Marisol José RT Amended: Links added.
[2020-03-09] MEDS: ALBUTEROL SULF 2.5 MG/0.5ML(0.5%) NEB SOLN NEB PRN (18:34)
[2020-03-09] MEDS: CLINDAMYCIN 600MG IV 50 ML IV SCH (21:48)
[2020-03-09] MEDS ORDERED: BENAZEPRIL HCL 10 MG TAB PO ONE (22:00)
[2020-03-09] MEDS ORDERED: AZITHROMYCIN 250 MG TAB PO ONE (22:00)
[2020-03-10] VITALS (7 sets, daily range): BP systolic 137–178; BP diastolic 54–78
--- NOTE | 2020-03-10 00:12 | NUR ---
MS admit from ER HOUSE,YOKO Pascal admitted to MS. Patient oriented to Jana Dailey, primary RN, unit, room, bed, and unit policies regarding patient care and visiting hours. Patient weighed by bedscale and encouraged to call if they need something. All questions and concerns addressed, patient verbalized understanding. Note:
[2020-03-10] MEDS: ALBUTEROL SULF 2.5 MG/0.5ML(0.5%) NEB SOLN NEB PRN ×3 (03:11→17:41)
--- NOTE | 2020-03-10 05:15 | NUR ---
Patient requested $100 bill to be placed in hospital safe. Envelope with the $100 bill sealed in front of the patient witnessed with another RN, Evelia. Said envelope handed to charge gang weigher Lauren. One copy in chart and another copy given to patient.
[2020-03-10] MEDS: CLINDAMYCIN 600MG IV 50 ML IV SCH ×4 (06:00→22:11)
[2020-03-10] MEDS: POTASSIUM CHL 20 Meq TABLET PO SCH ×2 (10:00→10:41)
[2020-03-10] MEDS: APIXABAN 5 MG TAB PO SCH ×2 (10:00→10:40)
[2020-03-10] MEDS: FUROSEMIDE 40 MG TAB PO SCH ×2 (10:00→10:41)
[2020-03-10] MEDS ORDERED: AZITHROMYCIN 500MG/ 250ML 250 ML IV SCH (10:00)
[2020-03-10] MEDS ORDERED: FURO40TA4 PO (10:38)
[2020-03-10] MEDS ORDERED: ASPI-498 PO (10:39)
[2020-03-10] MEDS: BENAZEPRIL HCL 10 MG TAB PO SCH (10:40)
[2020-03-10] MEDS ORDERED: ASCO500T11 PO (10:43)
--- NOTE | 2020-03-10 19:25 | NUR ---
Opening Note Assumed care of patient. Pt is awake, alert, and oriented X 4 with no s/s of respiratory distress. Patient is on 2 LPM O2. Respirations are regular and non-labored. Pt reports no pain or/and discomfort. Bed in lowest position, brakes locked, side rails up X 2, call light within reach. Discussed POC with the pt. Patient instructed to call for assistance as needed. Pt verbalized understanding. Will continue to monitor for changes Q1H or/and PRN.
--- NOTE | 2020-03-11 02:59 | NUR ---
Episode of SOB At 0225 patient called to nursing station stating she cannot breathe and it is an allergic reaction to antibiotic (Clindamycin) given her at 2200. Vitals taken SpO2 96% on 2 LPM O2. Patient stated that Benadryl always helped and requested that medicine. 25 mg of Benadryl was given. Patient was monitored closely. 20 min later patient stated that she is not panicking anymore and can breathe. Patient is in high Horta position, no s/s of respiratory distress. Will continue to monitor PRN.
--- NOTE | 2020-03-11 03:37 | NUR ---
Called RT Called RT for breathing treatment.
[2020-03-11] MEDS: ALBUTEROL SULF 2.5 MG/0.5ML(0.5%) NEB SOLN NEB PRN ×2 (03:43→18:12)
[2020-03-11 04:48] VITALS: BP 133/70
[2020-03-11] MEDS: CLINDAMYCIN 600MG IV 50 ML IV SCH (06:00)
[2020-03-11 08:00] VITALS: BP 154/67
--- NOTE | 2020-03-11 09:41 | NUR ---
Respiratory note: HR 80, RR 16, SPO2 98 ON 3 L NC, BS CLEAR. PRN MED NEB TX NOT INDICATED AT THIS TIME.WILL CONTINUE TO MONITOR ORDERED.
[2020-03-11] MEDS ORDERED: AZITHROMYCIN 250 MG TAB PO SCH (10:00)
[2020-03-11] MEDS: APIXABAN 5 MG TAB PO SCH ×2 (10:00→11:34)
[2020-03-11] MEDS: FUROSEMIDE 40 MG TAB PO SCH (10:00)
[2020-03-11] MEDS: POTASSIUM CHL 20 Meq TABLET PO SCH (10:00)
[2020-03-11] MEDS: BENAZEPRIL HCL 10 MG TAB PO SCH (11:27)
[2020-03-11 12:00] VITALS: BP 139/76
[2020-03-11 17:00] VITALS: BP 153/86
--- NOTE | 2020-03-11 19:16 | NUR ---
Opening Note Assumed care of a patient. Pt is awake, alert, and oriented X 4 with no s/s of respiratory distress. Patient is on 2 LPM O2 via NC. Respirations are regular and non-labored. Pt reports no pain or/and discomfort. Bed in lowest position, brakes locked, side rails up X 2, call light within reach. Discussed POC with the pt. Patient instructed to call for assistance as needed. Pt verbalized understanding. Will continue to monitor for changes Q1H or/and PRN.
[2020-03-11 20:00] VITALS: BP 152/64
[2020-03-11 21:49] VITALS: BP 152/64
[2020-03-12 04:41] VITALS: BP 152/74
[2020-03-12] MEDS: ALBUTEROL SULF 2.5 MG/0.5ML(0.5%) NEB SOLN NEB PRN ×2 (07:08→11:56)
[2020-03-12 09:00] VITALS: BP 152/64
[2020-03-12 13:00] VITALS: BP 149/70
--- NOTE | 2020-03-12 13:10 | NUR ---
Nutrition Assessment Notes Please refer to link for full assessment notes. Est Energy needs: [address] kcals (22-25 kcal/kgIBW) Est Protein needs: 127-159 gms/day (2.0-2.5 gm/kgIBW) Will continue to monitor and reassess prn. Addendum: 03/12/20 at [address] Amended: Links added.
[2020-03-12] MEDS: CLINDAMYCIN 600MG IV 50 ML IV SCH ×3 (14:00→21:49)
--- NOTE | 2020-03-12 14:45 | NUR ---
Attempted PT treatment. Pt is out of room for procedure.
--- NOTE | 2020-03-12 16:51 | NUR ---
PAGED STREET CAR MECHANIC PRESS WRITER FOR TRANSFER TO HIGHER LEVEL OF CARE FOR ENT.
[2020-03-12 17:00] VITALS: BP 157/84
[2020-03-12] MEDS: ACETAMINOPHEN/CODEINE#3 (300/30mg) TAB PO PRN (17:33)
[2020-03-12] MEDS: AZITHROMYCIN 500MG/ 250ML 250 ML IV SCH (17:33)
[2020-03-12] MEDS: diphenhdrAMINE HCL 25 MG CAP PO PRN (18:48)
--- NOTE | 2020-03-12 19:32 | NUR ---
Respiratory note: ASSESSED PT FOR PRN TX PT WAS AWAKE AND ALERT, NO RESP DISTRESS NOTED. HR 60, RR18, SPO2 99% ON 2L N/C. NO INDICATION FOR TX AT THIS TIME. PT KNOWS TO HAVE RT PAGED IF TX IS NEEDED.
[2020-03-12 20:24] VITALS: BP 157/84
[2020-03-12] MEDS: APIXABAN 5 MG TAB PO SCH (21:30)
--- NOTE | 2020-03-12 21:37 | NUR ---
Spoke with the offsite pharmacy and i referenced them since patient had allergic reaction to azithromycin earlier today if it safe to give the order of clindamycin. He stated that he could not guarantee a no reaction but said the two drugs are pretty dis similar.
--- NOTE | 2020-03-12 21:49 | NUR ---
PATIENT STATED SHE HAS AN ALLERGY TO CLINDAMYCIN. MEDICATION WAS WITHHELD.
[2020-03-12 22:00] VITALS: BP 158/73
--- NOTE | 2020-03-12 23:40 | NUR ---
COVID 19 SWAB COLLECT AT THIS TIME.
[2020-03-13 05:47] VITALS: BP 156/64
[2020-03-13 05:57] VITALS: BP 156/64
[2020-03-13] MEDS: CLINDAMYCIN 600MG IV 50 ML IV SCH ×2 (06:00→14:00)
--- NOTE | 2020-03-13 07:30 | NUR ---
Opening Shift Note Assuming care of patient at this time. Patient is awake and alert. Patient denies pain. Patient shows no signs or symptoms of distress or shortness of breath. Bed is locked and lowered with side rails up x2. Instructed patient on the plan of care for today and to call for assistance as needed. Call light within reach. Will continue to round hourly and as needed.
[2020-03-13] MEDS: ALBUTEROL SULF 2.5 MG/0.5ML(0.5%) NEB SOLN NEB PRN ×2 (08:33→19:21)
[2020-03-13 09:00] VITALS: BP 179/75
[2020-03-13] MEDS: APIXABAN 5 MG TAB PO SCH (09:43)
[2020-03-13] MEDS: BENAZEPRIL HCL 10 MG TAB PO SCH (09:44)
--- NOTE | 2020-03-13 09:44 | NUR ---
Linen Change/Bed bath Bed bath and linen change done on patient at this time. Patient tolerated well.
[2020-03-13] MEDS: AZITHROMYCIN 500MG/ 250ML 250 ML IV SCH (09:45)
[2020-03-13] MEDS: ACETAMINOPHEN/CODEINE#3 (300/30mg) TAB PO PRN (09:46)
--- NOTE | 2020-03-13 10:15 | NUR ---
Refusing to be turned Patient will not allow us to turn her to relieve some pressure. Educated patient that from her bottom up until her back is bright red. Educated patient on the importance to turn and skin breakdown. Patient states, "I'm not going to get a bed sore. I have never gotten one before." Educated patient that they could still happen. Patient states, "I have been in the bed for years without being turned and have never gotten one." Will continue to educate and attempt to turn.
--- NOTE | 2020-03-13 12:45 | NUR ---
Refusing to Turn Patient does not want to be turned at this time despite education. Will continue to offer to turn.
[2020-03-13 13:00] VITALS: BP 157/96
--- NOTE | 2020-03-13 14:00 | NUR ---
Refusing to Turn Patient does not want to be turned at this time despite education. Will continue to offer to turn.
[2020-03-13] MEDS ORDERED: CEFEPIME 2 GM in SODIUM CHL 0.9% 50 ML IV ONE (15:30)
--- NOTE | 2020-03-13 16:00 | NUR ---
Turned patient Patient allowed this RN with assistance of JONATHAN Pearson to turn her on her side. Patient screamed that she was uncomfortable until a position that she found acceptable was found. Patient wants to be turned back before dinner.
--- NOTE | 2020-03-13 16:20 | NUR ---
Patient Yelling Patient yelling, "NURSE!! HELP!" Upon entering room, patient states her legs have gone numb and she wants to be moved back, "to the way I was." With the assistance of Lili CASTILLO, patient is moved back to her back. Once comfortable, no distress noted.
--- NOTE | 2020-03-13 16:28 | NUR ---
Call to Pharmacy Need Maxipime to be sent to floor in order to administer medication.
[2020-03-13 17:00] VITALS: BP 146/76
--- NOTE | 2020-03-13 19:43 | NUR ---
Closing Shift Note Patient resting in bed. No distress noted. Report given. Will endorse care to the shift superintendent caustic cresylate RN.
[2020-03-13] MEDS: CEFEPIME 2 GM in SODIUM CHL 0.9% 50 ML IV SCH (21:49)
[2020-03-13 22:45] VITALS: BP 149/80
[2020-03-14] MEDS: CEFEPIME 2 GM in SODIUM CHL 0.9% 50 ML IV SCH ×3 (05:38→19:36)
--- NOTE | 2020-03-14 05:38 | NUR ---
HUMPHREY REFUSES AM DOSE OF MAXIPENE, PATIENT STATES SHE DEVELOPED A RASH/HIVES AFTER RECEIVING BLOOD TRANSFUSION. WILL CONTINUE TO MONITOR PATIENT.
[2020-03-14 05:50] VITALS: BP 159/97
[2020-03-14 09:00] VITALS: BP 145/76
[2020-03-14] MEDS: ALBUTEROL SULF 2.5 MG/0.5ML(0.5%) NEB SOLN NEB PRN ×2 (09:59→23:12)
[2020-03-14] MEDS: APIXABAN 5 MG TAB PO SCH ×4 (10:14→23:08)
[2020-03-14] MEDS: BENAZEPRIL HCL 10 MG TAB PO SCH (10:14)
--- NOTE | 2020-03-14 11:28 | NUR ---
1129 03/14/20 Patient transfer will be delayed due to no specific reason for transfer, no discharge summary. Attempted to contacted Dr Sandra Luz at [phone], spoke with his office staff member (Cheng) who stated that he would page Dr Luz and give him the message to contact case assistant regarding pending transfer.
--- NOTE | 2020-03-14 11:31 | NUR ---
Page to Dr. Sandra Luz Page to Dr. Sandra Luz through his office at this time regarding patient's transfer. Awaiting callback.
[2020-03-14 13:00] VITALS: BP 154/62
[2020-03-14 17:00] VITALS: BP 162/76
--- NOTE | 2020-03-14 18:15 | NUR ---
Elevated blood pressure 1700 vital signs show an elevated blood pressure. Reassessment of blood pressure done at this time. Patient's blood pressure is 182/85, pulse of 66. Will notify MD. Patient's states that this could be an allergic reaction to her antibiotics that are running, stopped infusion at this time. Most of maxipime has infused, will turn off per patient's request.
--- NOTE | 2020-03-14 18:18 | NUR ---
Call to Dr. Sandra Luz New orders given for patient's elevated blood pressure. Dr. Luz aware of social insurance administrator needing discharge summary and exact reasons for transfer to higher level of care. Dr. Luz states he will do it tonight.
[2020-03-14] MEDS ORDERED: hydrALAZINE HCL 20 MG/ML VL IV PRN (18:30)
--- NOTE | 2020-03-14 18:41 | NUR ---
Refusing to Turn Patient has refused to be turn throughout the shift today. Entire back side of patient has blanchable redness. Educated patient on the need to redistribute weight and turn patient. However, patient continues to refuse.
--- NOTE | 2020-03-14 19:24 | NUR ---
Closing Shift Note Patient resting in bed. No distress noted. Report given. Will endorse care to the steward/stewardess night RN.
[2020-03-14] MEDS: diphenhdrAMINE HCL 25 MG CAP PO PRN ×2 (19:36)
[2020-03-14 22:00] VITALS: BP 167/89
[2020-03-14] MEDS: ACETAMINOPHEN/CODEINE#3 (300/30mg) TAB PO PRN (23:08)
[2020-03-15] VITALS (8 sets, daily range): BP systolic 134–154; BP diastolic 68–79
--- NOTE | 2020-03-15 | NUR ---
PROVIDER. DR NEAL CAME TO SEE PATIENT AND FILLED OUT PAPERWORK FOR PATIENT TO BE TRANSFERRED HIGHER LEVEL OF CARE DUE TO PATIENT NEEDING TO EVALUATE BY ENT FOR HORSENESS AND UNABLE TO SPEAK. SOCIAL SERVICE CONSULT MADE CHARGE NURSE AWARE AND WILL INFORM MEDICAL HOUSEKEEPER
[2020-03-15] MEDS: CEFEPIME 2 GM in SODIUM CHL 0.9% 50 ML IV SCH ×3 (04:17→21:50)
[2020-03-15 06:46] LABS: Basophils # (auto) 0 10 ^3/uL (0-0.2); Basophils % (auto) 0.5 % (0.0-2.0); Eosinophils # (auto) 0.1 10 ^3/uL (0-0.8); Eosinophils % (auto) 2.9 % (0.0-7.0); Hematocrit 36.5 % (36.0-46.0); Hemoglobin 12.1 g/dL (12.2-16.2); Lymphocytes # (auto) 1.5 10 ^3/uL (0.4-5.4); Lymphocytes % (auto) 32.6 % (10.0-50.0); Mean Corpuscular Hemoglobin 30.6 pg (28.0-32.0); Mean Corpuscular Hgb Conc. 33.1 g/dL (32.0-36.0); Mean Corpuscular Volume 92.2 fL (80.0-100.0); Monocytes # (auto) 0.4 10 ^3/uL (0-1.3); Monocytes % (auto) 9.4 % (0.0-12.0); Neutrophils # (auto) 2.6 10 ^3/uL (1.6-8.6); Neutrophils % (auto) 54.6 % (37.0-80.0); Nucleated Red Blood Cells % 0.1 %; Platelet Count (auto) 169 10^3/uL (140-450); Red Blood Cells 3.96 10^6/uL (4.0-5.20); White Blood Cell 4.7 10^3/uL (4.4-10.8)
[2020-03-15 06:52] LABS: Calcium 8.8 mg/dL (8.5-10.1); Potassium 3.9 mmol/L (3.5-5.1)
[2020-03-15 06:56] LABS: BUN/Creatinine Ratio 38.5
[2020-03-15] MEDS: ALBUTEROL SULF 2.5 MG/0.5ML(0.5%) NEB SOLN NEB PRN (08:31)
[2020-03-15] MEDS: APIXABAN 5 MG TAB PO SCH ×3 (10:29→22:00)
[2020-03-15] MEDS: BENAZEPRIL HCL 10 MG TAB PO SCH ×2 (10:29→21:58)
--- NOTE | 2020-03-15 11:15 | NUR ---
WOUND CARE NOTE: IN TO SEE PATIENT AT THIS TIME PER WOUND CARE CONSULT REQUEST. PATIENT IS MAX ASSIST FOR HER TURNING/REPOSITIONING PER BEDSIDE NURSE. [facility]ONCHIT[facility], SYSTOLIC/DIASTOLIC HEART FAILURE, RESPIRATORY FAILURE. CURRENT ANNY SCORE IS 15. PER PATIENT STATEMENT, SHE HAS A BAD BACK AND IS VERY IMMOBIZED D/T HER BACK PAIN. PATIENT IS ABLE TO TURN PULLING HER SELF OVER HOLDING ON TO BED RAIL, AND ASSISTANCE BY STAFF. SHE IS UNABLE TO HOMICIDE SQUAD CAPTAIN FEET/LEGS UP OFF BED. SHE CAN TURN/ROTATE FEET WITH NO ASSISTANCE. PATIENT HAS NO SKIN INTEGRITY ISSUES AT THIS TIME. SKIN IS BLANCHABLE. RECOMMEND: FREQUENT TURN SCHEDULE Q 2 HOURS, PRN CONDITION PERMITS, WITH PRESSURE REDISTRIBUTION USING PILLOWS/WEDGES, BID/PRN APPLICATION WITH MOISTURE BARRIER CREAM, OPTIFOAM GENTLE SACRAL DRESSING, SKIN/WOUND CARE PLAN, CONTINUED MONITORING BY WOUND CARE TEAM.
--- NOTE | 2020-03-15 12:24 | NUR ---
1224 03/15/20 Contacted [facility] therapy coordinator at [phone] regarding pending transfer of patient for higher level of care. Spoke with therapy coordinator Lucretia who confirmed receipt of all faxed information. Lucretia also stated that she was contacting correctional supply supervisor hospitalist for peer to peer. Lucretia stated that she would provide up date by end of day.
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
--- NOTE | 2020-03-15 16:16 | NUR ---
1616 03/15/20 Contacted by coordinator mining products Lucretia at [facility], pt has been accepting for higher level of care with accepting physician Dr Magana with consult ENT physician Dr Centeno. I have placed pt on will call with [facility].
--- NOTE | 2020-03-15 17:02 | NUR ---
Nutrition Followup Notes Pt wt is 122.9 kg Pt was sleeping when rounded this morning. Pt appetite is good aeb 96% PO intake over six meals. Pt with no distress per RN doc. Will continue to closely monitor pertinent labs, PO intake and skin status prn. Will followup in 3-5 days Est Energy needs: [id number] kcals (22-25 kcal/kgIBW) Est Protein needs: 127-159 gms/day (2.0-2.5 gm/kgIBW) Will continue to monitor and reassess prn. LABS: ALB 3.2 L GI: Pt had 2 BM on 03/15 per RN doc BS: 15 mod risk Please refer to wound assessment report for full details. PES: Problem 1) Obesity r/t energy intake in excess of energy needs aeb 196% IBW and BMI of 41.8 kg/m2 2) Altered nutrition related lab values r/t current/chronic medical condition aeb hyperchloremia, hyperglycemia, hypocalcemia, hypoalbuminemia Comments Will continue to closely monitor pertinent labs, PO intake and skin status prn. Will followup in 3-5 days 1) Continue to closely monitor pt PO intake to meet at least 75% of meals 2) Continue current plan of care
[2020-03-15] MEDS: ACETAMINOPHEN/CODEINE#3 (300/30mg) TAB PO PRN (21:59)
--- NOTE | 2020-03-16 02:19 | NUR ---
[facility] TRANSFER [facility] CALLED AND STATES THERE IS BED AVAILABLE BUT THEY NEED DOCTOR TO DOCTOR REPORT ON PATIENT, INFORMED [facility] THAT DR Alexandra NEAL IS NOT HERE AT THE HOSPITAL TO GIVE REPORT, AND TO TRY TOMORROW MORNING.
[2020-03-16 05:00] VITALS: BP 153/67
[2020-03-16] MEDS: CEFEPIME 2 GM in SODIUM CHL 0.9% 50 ML IV SCH (05:20)
--- NOTE | 2020-03-16 05:49 | NUR ---
[facility] TRANSFER [facility] CALLED THIS AM THERE IS A BED AVAILABLE FOR PATIENT 672B. INFORMED THEM THAT [facility] IS ON WILL-CALL.
--- NOTE | 2020-03-16 05:59 | NUR ---
REPORT TO [facility] GAVE REPORT TO NURSE MACHADO REGARDING PATIENT SHE WILL BE GOING TO ROOM 672B FOR HIGHER LEVEL OF CARE UNDER ENT. DR HEADLEY AND PRIMARY DR PORRAS
--- NOTE | 2020-03-16 07:00 | NUR ---
DISCHARGE PAPERWORK AND PATIENT PERSONAL BELONGINGS IN [facility] $100 (1) GIVEN BACK TO PATIENT.
--- NOTE | 2020-03-16 07:13 | NUR ---
DISCHARGE [facility] AT BEDSIDE [facility] ALL BELONGINGS WITH PATIENT. PATIENT IN NO APPARENT CARDIAC OR PULMONARY DISTRESS OR SOB.
== END 2020-03-16 07:13 | disposition short-term general hospital (02) | DRG 189 ==
LOC: ER 11:46 → EDBD 11:46 → OVERFLOW 11:47 → WEST WING 23:48
PROVIDERS: ADMIT Specialist; ATTEND Specialist
DX: J96.20 Acute and chronic respiratory failure, unspecified whether with hypoxia or hypercapnia (principal); I50.42 Chronic combined systolic (congestive) and diastolic (congestive) heart failure; Z68.41 Body mass index [BMI] 40.0-44.9, adult; J45.909 Unspecified asthma, uncomplicated; I25.10 Atherosclerotic heart disease of native coronary artery without angina pectoris; Z20.828 Contact with and (suspected) exposure to other viral communicable diseases; I48.91 Unspecified atrial fibrillation; E66.01 Morbid (severe) obesity due to excess calories; Z88.1 Allergy status to other antibiotic agents; Z88.5 Allergy status to narcotic agent; Z95.0 Presence of cardiac pacemaker; Z74.01 Bed confinement status; Z88.0 Allergy status to penicillin; Z88.8 Allergy status to other drugs, medicaments and biological substances; F41.9 Anxiety disorder, unspecified; I11.0 Hypertensive heart disease with heart failure; Z79.01 Long term (current) use of anticoagulants
CPT/HCPCS: 36415; 70486; 71045; 80048; 80053; 83605; 83735; 83880; 84443; 84484; 85025; 85610; 85730; 87040; 87070; 87077; 87086; 87186; 87205; 93005; 93970; 94640; 97110; 97163; 97530; G0378; J3490

== ENCOUNTER 2020-10-15 03:12 | Inpatient (IN) | payer MEDICARE, MEDICAID ==
[~2020-10-15] VITALS: Ht 172.7 cm; Wt 80.0 kg
[~2020-10-15 03:12] MED LIST changes: +ASCO500T11 PO; +ASPI-498 PO
[2020-10-15] MEDS ORDERED: DexAMETHasone SOD PHOS 10MG/1ML VIAL INJ IV ONE (03:30)
[2020-10-15 05:24] LABS: Basophils # (auto) 0 10 ^3/uL (0-0.2); Basophils % (auto) 0.3 % (0.0-2.0); Eosinophils # (auto) 0.1 10 ^3/uL (0-0.8); Hematocrit 36.6 % (36.0-46.0); Hemoglobin 11.9 g/dL (12.2-16.2); Lymphocytes # (auto) 1.1 10 ^3/uL (0.4-5.4); Lymphocytes % (auto) 14.2 % (10.0-50.0); Mean Corpuscular Hemoglobin 30.5 pg (28.0-32.0); Mean Corpuscular Hgb Conc. 32.6 g/dL (32.0-36.0); Mean Corpuscular Volume 93.5 fL (80.0-100.0); Monocytes # (auto) 0.6 10 ^3/uL (0-1.3); Monocytes % (auto) 7.5 % (0.0-12.0); Neutrophils # (auto) 5.8 10 ^3/uL (1.6-8.6); Nucleated Red Blood Cells % 0.1 %; Platelet Count (auto) 223 10^3/uL (140-450); Red Blood Cells 3.91 10^6/uL (4.0-5.20); Red Cell Distribution Width 13.2 % (11.8-14.3); White Blood Cell 7.5 10^3/uL (4.4-10.8)
[2020-10-15 05:33] LABS: Albumin 2.9 g/dL (3.4-5.0); Magnesium 1.8 mg/dL (1.6-2.6)
[2020-10-15 05:40] LABS: BUN/Creatinine Ratio 9.5; Bilirubin, Total 0.6 mg/dL (0.2-1.0)
[2020-10-15 05:53] LABS: Potassium 2.9 mmol/L (3.5-5.1)
[2020-10-15] MEDS: ALBUTEROL SULF HFA 90MCG INH 200DOSE IN SCH ×3 (06:00→22:00)
[2020-10-15] MEDS ORDERED: POTASSIUM CHL 20MEQ/100ML 100 ML IV ONE (06:15)
[2020-10-15] MEDS ORDERED: POTASSIUM EFFERVESENT TAB 25 MEQ PO ONE (06:15)
[2020-10-15] MEDS ORDERED: HYDROcodone-ACET 5/325MG TAB PO PRN (17:15)
[2020-10-15] MEDS ORDERED: MORPHINE SULF INJ 2 MG/ML SYRINGE 1ML IV PRN (17:15)
[2020-10-15] MEDS ORDERED: NITROGLYCERIN 0.4 MG SL TAB SL PRN (17:15)
[2020-10-15] MEDS ORDERED: ENOXAPARIN SOD 100 MG/1 ML SYRINGE SC ONE (17:15)
[2020-10-15] MEDS ORDERED: IOHEXOL 350 MG/ML 100ML IJ ONE (17:29)
[2020-10-16] MEDS: D5W/SOD CHL 0.45% 1,000 ML IV SCH ×3 (00:24→20:08)
[2020-10-16] MEDS: cefTRIAXone 1GM/50ML D5W 50 ML IV SCH ×2 (00:24→09:21)
[2020-10-16] MEDS: PANTOPRAZOLE 40 MG/10 ML VIAL INJ IV SCH ×3 (00:24→22:00)
[2020-10-16] MEDS: ENOXAPARIN SOD 150 MG/1 ML SYRINGE SC SCH ×4 (00:24→17:26)
[2020-10-16] MEDS: ALBUTEROL SULF HFA 90MCG INH 200DOSE IN SCH ×2 (06:00→14:00)
[2020-10-16 07:58] LABS: INR 1.13 (0.9-1.15); Partial Thromboplastin Time 31.3 sec (23.0-31.2)
[2020-10-16 22:08] LABS: Urine Bacteria FEW /hpf (None Seen); Urine Blood 1+ /uL (Negative); Urine Budding Yeast MODERATE /hpf (None Seen); Urine Mucus FEW (None Seen); Urine Specific Gravity 1.028 (1.001-1.035); Urine WBC 88 /hpf (0 - 5)
[2020-10-17 01:08] VITALS: BP 148/73
[2020-10-17 05:00] VITALS: BP 141/68
[2020-10-17 08:00] VITALS: BP 151/87
[2020-10-17] MEDS: D5W/SOD CHL 0.45% 1,000 ML IV SCH (09:15)
[2020-10-17] MEDS ORDERED: guaiFENesin 200 MG/10 ML UD PO PRN (11:00)
[2020-10-17] MEDS: PANTOPRAZOLE 40 MG/10 ML VIAL INJ IV SCH ×2 (12:29→21:31)
[2020-10-17] MEDS: POTASSIUM CHL 20 Meq TABLET PO SCH ×2 (12:30→12:35)
[2020-10-17] MEDS: FLUCONAZOLE 100 MG TAB PO SCH (12:30)
[2020-10-17] MEDS: cefTRIAXone 1GM/50ML D5W 50 ML IV SCH (13:41)
[2020-10-17 16:00] VITALS: BP 154/81
[2020-10-17] MEDS: ENOXAPARIN SOD 150 MG/1 ML SYRINGE SC SCH (18:59)
[2020-10-17 21:00] VITALS: BP 132/65
[2020-10-17] MEDS ORDERED: diphenhdrAMINE HCL 50 MG/1 ML VL IV PRN (21:30)
[2020-10-17] MEDS: NYSTATIN TOPICAL CREAM 15GM TOP SCH (21:31)
[2020-10-17] MEDS ORDERED: FUROSEMIDE 100 MG/10ML VIAL IV ONE (22:45)
[2020-10-17] MEDS ORDERED: POTASSIUM CHL 20 Meq TABLET PO ONE (22:45)
[2020-10-18] VITALS: BP 132/65
[2020-10-18 05:00] VITALS: BP 136/66
[2020-10-18] MEDS: ENOXAPARIN SOD 150 MG/1 ML SYRINGE SC SCH ×2 (05:37→17:32)
[2020-10-18 08:00] VITALS: BP 135/68
[2020-10-18 08:46] LABS: BUN/Creatinine Ratio 30.2; Calcium 8.4 mg/dL (8.5-10.1)
[2020-10-18] MEDS: cefTRIAXone 1GM/50ML D5W 50 ML IV SCH (09:46)
[2020-10-18] MEDS: FLUCONAZOLE 100 MG TAB PO SCH (09:47)
[2020-10-18] MEDS: NYSTATIN TOPICAL CREAM 15GM TOP SCH ×2 (09:48→21:55)
[2020-10-18] MEDS: ALBUTEROL SULF 2.5 MG/0.5ML(0.5%) NEB SOLN NEB PRN (09:50)
[2020-10-18] MEDS ORDERED: FUROSEMIDE 20 MG/2 ML VIAL IV SCH (10:00)
[2020-10-18] MEDS: POTASSIUM CHL 10 Meq TABLET PO SCH (15:17)
[2020-10-18] MEDS: PANTOPRAZOLE 40 MG TAB PO SCH ×2 (15:17→21:55)
[2020-10-18] MEDS: FUROSEMIDE 40 MG/4 ML VIAL IV SCH (15:22)
[2020-10-18 16:00] VITALS: BP 140/67
[2020-10-18 22:00] VITALS: BP 146/79
[2020-10-19] VITALS: BP 146/79
[2020-10-19 05:35] VITALS: BP 150/71
[2020-10-19] MEDS: ENOXAPARIN SOD 150 MG/1 ML SYRINGE SC SCH ×2 (05:43→17:39)
[2020-10-19 06:28] LABS: Potassium 3.9 mmol/L (3.5-5.1)
[2020-10-19 06:36] LABS: BUN/Creatinine Ratio 32.4; Calcium 8.5 mg/dL (8.5-10.1)
[2020-10-19] MEDS: ALBUTEROL SULF 2.5 MG/0.5ML(0.5%) NEB SOLN NEB PRN (06:46)
[2020-10-19 08:00] VITALS: BP 156/73
[2020-10-19] MEDS: FLUCONAZOLE 100 MG TAB PO SCH ×2 (10:00→11:50)
[2020-10-19] MEDS: cefTRIAXone 1GM/50ML D5W 50 ML IV SCH (10:00)
[2020-10-19] MEDS: PANTOPRAZOLE 40 MG TAB PO SCH ×2 (10:00→21:54)
[2020-10-19] MEDS: POTASSIUM CHL 10 Meq TABLET PO SCH (10:00)
[2020-10-19] MEDS: FUROSEMIDE 40 MG/4 ML VIAL IV SCH ×2 (10:01→17:40)
[2020-10-19] MEDS: NYSTATIN TOPICAL CREAM 15GM TOP SCH ×2 (10:02→22:00)
[2020-10-19] MEDS: diphenhdrAMINE HCL 50 MG/1 ML VL IV PRN (11:51)
[2020-10-19 16:00] VITALS: BP 170/98
[2020-10-19] MEDS ORDERED: LABETALOL HCL 5 MG/ML 4ML SYRINGE IV PRN (16:30)
[2020-10-19] MEDS: LOSARTAN POTASSIUM 25 MG TAB PO SCH (21:56)
[2020-10-19 22:00] VITALS: BP 154/74
[2020-10-19] MEDS: MUPIROCIN 2% OINT 15gm or 22gm EACHNOSTRI SCH (22:00)
[2020-10-20] VITALS: BP 160/78
[2020-10-20 05:51] VITALS: BP 177/87
[2020-10-20 07:08] LABS: Calcium 8.8 mg/dL (8.5-10.1)
[2020-10-20 08:00] VITALS: BP 161/77
[2020-10-20] MEDS: PANTOPRAZOLE 40 MG TAB PO SCH ×4 (10:00→22:21)
[2020-10-20] MEDS: POTASSIUM CHL 10 Meq TABLET PO SCH (10:00)
[2020-10-20] MEDS: cefTRIAXone 1GM/50ML D5W 50 ML IV SCH (10:06)
[2020-10-20] MEDS: FLUCONAZOLE 100 MG TAB PO SCH (10:06)
[2020-10-20] MEDS: diphenhdrAMINE HCL 50 MG/1 ML VL IV PRN (10:06)
[2020-10-20] MEDS: NYSTATIN TOPICAL CREAM 15GM TOP SCH ×2 (10:07→21:39)
[2020-10-20] MEDS: LOSARTAN POTASSIUM 25 MG TAB PO SCH ×2 (10:08→21:39)
[2020-10-20] MEDS: MUPIROCIN 2% OINT 15gm or 22gm EACHNOSTRI SCH ×2 (10:10→21:38)
[2020-10-20] MEDS: CLOTRIMAZOLE 1 % CREAM 15GM TOP SCH ×2 (10:49→22:00)
[2020-10-20] MEDS: BETAMETHASONE DIPROP0.05% TOPICAL CREAM 15GM TOP SCH ×2 (10:49→22:00)
[2020-10-20] MEDS: ACETAMINOPHEN/CODEINE#3 (300/30mg) TAB PO PRN (11:53)
[2020-10-20 16:00] VITALS: BP 144/74
[2020-10-20] MEDS: FUROSEMIDE 40 MG/4 ML VIAL IV SCH (17:40)
[2020-10-20] MEDS: ENOXAPARIN SOD 150 MG/1 ML SYRINGE SC SCH (17:40)
[2020-10-20] MEDS: ALBUTEROL SULF 2.5 MG/0.5ML(0.5%) NEB SOLN NEB PRN (20:17)
[2020-10-21] VITALS: BP 147/70
[2020-10-21] MEDS: FUROSEMIDE 40 MG/4 ML VIAL IV SCH ×2 (05:34→17:47)
[2020-10-21] MEDS: ENOXAPARIN SOD 150 MG/1 ML SYRINGE SC SCH ×2 (05:34→17:47)
[2020-10-21] MEDS: ALBUTEROL SULF 2.5 MG/0.5ML(0.5%) NEB SOLN NEB PRN ×3 (06:15→22:52)
[2020-10-21 08:00] VITALS: BP 123/69
[2020-10-21] MEDS: LOSARTAN POTASSIUM 25 MG TAB PO SCH ×2 (09:52→21:42)
[2020-10-21] MEDS: cefTRIAXone 1GM/50ML D5W 50 ML IV SCH (09:52)
[2020-10-21] MEDS: MUPIROCIN 2% OINT 15gm or 22gm EACHNOSTRI SCH ×2 (09:52→21:41)
[2020-10-21] MEDS: FLUCONAZOLE 100 MG TAB PO SCH (09:53)
[2020-10-21] MEDS: POTASSIUM CHL 10 Meq TABLET PO SCH ×2 (09:53→10:00)
[2020-10-21] MEDS: PANTOPRAZOLE 40 MG TAB PO SCH ×2 (09:53→21:42)
[2020-10-21] MEDS: BETAMETHASONE DIPROP0.05% TOPICAL CREAM 15GM TOP SCH ×2 (09:53→21:43)
[2020-10-21] MEDS: CLOTRIMAZOLE 1 % CREAM 15GM TOP SCH ×2 (09:54→21:43)
[2020-10-21] MEDS: NYSTATIN TOPICAL CREAM 15GM TOP SCH ×2 (09:54→21:43)
[2020-10-21] MEDS: ACETAMINOPHEN/CODEINE#3 (300/30mg) TAB PO PRN ×2 (09:59→20:19)
[2020-10-21 16:00] VITALS: BP 141/90
[2020-10-21 21:49] VITALS: BP 134/72
[2020-10-22] VITALS: BP_SYST 134; BP_SYST 140; BP_DIAS 72
[2020-10-22] MEDS: diphenhdrAMINE HCL 50 MG/1 ML VL IV PRN (00:51)
[2020-10-22] MEDS: ALBUTEROL SULF 2.5 MG/0.5ML(0.5%) NEB SOLN NEB PRN ×2 (02:36→13:08)
[2020-10-22 05:30] VITALS: BP 160/68
[2020-10-22] MEDS: ENOXAPARIN SOD 150 MG/1 ML SYRINGE SC SCH ×2 (06:28→17:41)
[2020-10-22] MEDS: FUROSEMIDE 40 MG/4 ML VIAL IV SCH ×2 (06:29→17:42)
[2020-10-22 08:00] VITALS: BP 142/74
[2020-10-22] MEDS: PANTOPRAZOLE 40 MG TAB PO SCH ×2 (10:00→22:00)
[2020-10-22] MEDS: MUPIROCIN 2% OINT 15gm or 22gm EACHNOSTRI SCH ×2 (10:01→22:42)
[2020-10-22] MEDS: POTASSIUM CHL 10 Meq TABLET PO SCH (10:02)
[2020-10-22] MEDS: LOSARTAN POTASSIUM 25 MG TAB PO SCH ×2 (10:02→22:42)
[2020-10-22] MEDS: cefTRIAXone 1GM/50ML D5W 50 ML IV SCH (10:02)
[2020-10-22] MEDS: FLUCONAZOLE 100 MG TAB PO SCH (10:02)
[2020-10-22] MEDS: NYSTATIN TOPICAL CREAM 15GM TOP SCH ×2 (10:03→22:43)
[2020-10-22] MEDS: CLOTRIMAZOLE 1 % CREAM 15GM TOP SCH ×2 (10:03→22:43)
[2020-10-22] MEDS: BETAMETHASONE DIPROP0.05% TOPICAL CREAM 15GM TOP SCH ×2 (10:03→22:43)
[2020-10-22] MEDS: ACETAMINOPHEN/CODEINE#3 (300/30mg) TAB PO PRN ×2 (10:04→17:42)
[2020-10-22 16:00] VITALS: BP 142/75
[2020-10-22 17:54] LABS: BUN/Creatinine Ratio 23.9; CRP High Sensitivity 0.59 mg/dL (< 0.3); Calcium 8.2 mg/dL (8.5-10.1); Potassium 3.7 mmol/L (3.5-5.1)
[2020-10-23] VITALS: BP 132/55
[2020-10-23 05:00] VITALS: BP 130/53
[2020-10-23] MEDS: ENOXAPARIN SOD 150 MG/1 ML SYRINGE SC SCH ×2 (05:28→18:08)
[2020-10-23] MEDS: FUROSEMIDE 40 MG/4 ML VIAL IV SCH ×2 (05:29→05:42)
[2020-10-23] MEDS: ACETAMINOPHEN/CODEINE#3 (300/30mg) TAB PO PRN (05:43)
[2020-10-23 08:00] VITALS: BP 129/50
[2020-10-23 08:30] VITALS: BP 127/50
[2020-10-23 08:31] LABS: BUN/Creatinine Ratio 28.1; Calcium 8.6 mg/dL (8.5-10.1); Potassium 3.9 mmol/L (3.5-5.1)
[2020-10-23] MEDS: PANTOPRAZOLE 40 MG TAB PO SCH ×3 (09:44→22:55)
[2020-10-23] MEDS: FLUCONAZOLE 100 MG TAB PO SCH (09:44)
[2020-10-23] MEDS: POTASSIUM CHL 10 Meq TABLET PO SCH (09:44)
[2020-10-23] MEDS: LOSARTAN POTASSIUM 25 MG TAB PO SCH ×2 (09:45→22:54)
[2020-10-23] MEDS: CLOTRIMAZOLE 1 % CREAM 15GM TOP SCH ×2 (10:06→22:55)
[2020-10-23] MEDS: MUPIROCIN 2% OINT 15gm or 22gm EACHNOSTRI SCH ×2 (10:07→22:53)
[2020-10-23] MEDS: NYSTATIN TOPICAL CREAM 15GM TOP SCH ×2 (10:07→22:55)
[2020-10-23] MEDS: BETAMETHASONE DIPROP0.05% TOPICAL CREAM 15GM TOP SCH ×2 (10:07→22:55)
[2020-10-23] MEDS: ALBUTEROL SULF 2.5 MG/0.5ML(0.5%) NEB SOLN NEB PRN (15:27)
[2020-10-23] MEDS: cefTRIAXone 1GM/50ML D5W 50 ML IV SCH (18:08)
[2020-10-23 22:00] VITALS: BP 155/89
[2020-10-24] MEDS: ACETAMINOPHEN/CODEINE#3 (300/30mg) TAB PO PRN ×2 (01:47→17:37)
[2020-10-24] MEDS: diphenhdrAMINE HCL 50 MG/1 ML VL IV PRN (01:56)
[2020-10-24 05:00] VITALS: BP 121/68
[2020-10-24] MEDS: ENOXAPARIN SOD 150 MG/1 ML SYRINGE SC SCH ×2 (05:18→17:36)
[2020-10-24] MEDS: FUROSEMIDE 40 MG/4 ML VIAL IV SCH ×2 (05:34→17:36)
[2020-10-24 08:00] VITALS: BP 128/84
[2020-10-24 09:00] VITALS: BP 128/84
[2020-10-24] MEDS: FLUCONAZOLE 100 MG TAB PO SCH (10:14)
[2020-10-24] MEDS: cefTRIAXone 1GM/50ML D5W 50 ML IV SCH (10:14)
[2020-10-24] MEDS: MUPIROCIN 2% OINT 15gm or 22gm EACHNOSTRI SCH (10:14)
[2020-10-24] MEDS: POTASSIUM CHL 10 Meq TABLET PO SCH (10:15)
[2020-10-24] MEDS: CLOTRIMAZOLE 1 % CREAM 15GM TOP SCH ×2 (10:15→23:19)
[2020-10-24] MEDS: LOSARTAN POTASSIUM 25 MG TAB PO SCH ×2 (10:15→23:18)
[2020-10-24] MEDS: BETAMETHASONE DIPROP0.05% TOPICAL CREAM 15GM TOP SCH ×2 (10:15→23:19)
[2020-10-24] MEDS: NYSTATIN TOPICAL CREAM 15GM TOP SCH ×2 (10:16→23:19)
[2020-10-24 11:02] LABS: BUN/Creatinine Ratio 21.4; Calcium 8.8 mg/dL (8.5-10.1)
[2020-10-24 16:00] VITALS: BP 151/68
[2020-10-24] MEDS: ALBUTEROL SULF 2.5 MG/0.5ML(0.5%) NEB SOLN NEB PRN (18:59)
[2020-10-24 22:00] VITALS: BP 137/59
[2020-10-24] MEDS: PANTOPRAZOLE 40 MG TAB PO SCH ×2 (22:00→23:18)
[2020-10-25] VITALS: BP 137/59
[2020-10-25 05:00] VITALS: BP 132/104
[2020-10-25] MEDS: ENOXAPARIN SOD 150 MG/1 ML SYRINGE SC SCH ×2 (05:26→18:00)
[2020-10-25] MEDS: FUROSEMIDE 40 MG/4 ML VIAL IV SCH ×2 (05:27→18:00)
[2020-10-25 07:51] LABS: BUN/Creatinine Ratio 32.1; Calcium 8.6 mg/dL (8.5-10.1); Potassium 3.8 mmol/L (3.5-5.1)
[2020-10-25 08:28] VITALS: BP 128/80
[2020-10-25] MEDS: cefTRIAXone 1GM/50ML D5W 50 ML IV SCH (11:07)
[2020-10-25] MEDS: ACETAMINOPHEN/CODEINE#3 (300/30mg) TAB PO PRN (11:08)
[2020-10-25] MEDS: LOSARTAN POTASSIUM 25 MG TAB PO SCH (11:09)
[2020-10-25] MEDS: FLUCONAZOLE 100 MG TAB PO SCH (11:09)
[2020-10-25] MEDS: POTASSIUM CHL 10 Meq TABLET PO SCH (11:09)
[2020-10-25 16:19] VITALS: BP 166/105
[2020-10-25] MEDS: BETAMETHASONE DIPROP0.05% TOPICAL CREAM 15GM TOP SCH (17:59)
[2020-10-25] MEDS: CLOTRIMAZOLE 1 % CREAM 15GM TOP SCH (17:59)
[2020-10-25] MEDS: NYSTATIN TOPICAL CREAM 15GM TOP SCH (18:00)
== END 2020-10-25 21:05 | disposition home or self-care (01) | DRG 291 ==
LOC: ER 03:12 → EDBD 03:12 → OVERFLOW 03:13 → TELE-CENTR 10-17 00:30
PROVIDERS: ADMIT Specialist; ATTEND Specialist
DX: I11.0 Hypertensive heart disease with heart failure (principal); J96.20 Acute and chronic respiratory failure, unspecified whether with hypoxia or hypercapnia; J44.1 Chronic obstructive pulmonary disease with (acute) exacerbation; N39.0 Urinary tract infection, site not specified; I50.33 Acute on chronic diastolic (congestive) heart failure; Z20.822 Contact with and (suspected) exposure to COVID-19; I25.10 Atherosclerotic heart disease of native coronary artery without angina pectoris; E87.6 Hypokalemia; L98.9 Disorder of the skin and subcutaneous tissue, unspecified; E66.01 Morbid (severe) obesity due to excess calories; F32.9 Major depressive disorder, single episode, unspecified; F41.9 Anxiety disorder, unspecified; L30.9 Dermatitis, unspecified; Z74.01 Bed confinement status; Z79.01 Long term (current) use of anticoagulants; Z86.73 Personal history of transient ischemic attack (TIA), and cerebral infarction without residual deficits; Z95.0 Presence of cardiac pacemaker; Z90.710 Acquired absence of both cervix and uterus; Z68.37 Body mass index [BMI] 37.0-37.9, adult; Z90.49 Acquired absence of other specified parts of digestive tract; Z80.9 Family history of malignant neoplasm, unspecified; Z88.1 Allergy status to other antibiotic agents; Z88.5 Allergy status to narcotic agent; Z91.018 Allergy to other foods; Z88.0 Allergy status to penicillin; Z91.013 Allergy to seafood; Z88.2 Allergy status to sulfonamides; Z91.09 Other allergy status, other than to drugs and biological substances; Z88.8 Allergy status to other drugs, medicaments and biological substances
CPT/HCPCS: 36415; 36600; 71045; 73620; 73700; 78582; 80048; 80053; 81001; 82805; 83605; 83735; 83880; 84484; 85025; 85379; 85610; 85730; 86141; 86225; 86235; 87040; 87045; 87081; 87086; 87426; 87427; 93005; 93970; 94640; 96365; 96366; 96375; 97110; 97116; 97163; 97530; G0378; J0696; J1100; J3480; J3490

== ENCOUNTER 2023-11-01 16:38 | Inpatient (IN) | payer MEDICARE, MEDICAID ==
[~2023-11-01] VITALS: Ht 172.7 cm; Wt 117.7 kg
[2023-11-01] VITALS (7 sets, daily range): BP systolic 177–217; BP diastolic 58–64; PULSE 67–78; RESP 18–36; O2SAT 95–100
[~2023-11-01 16:38] MED LIST changes: +BENA-19 PO; -BENA10TA9 PO; -DIP25C PO; +DIPH25CA51 PO
[2023-11-01] MEDS: cefTRIAXone 1GM/50ML D5W 50 ML IV ONE (17:30)
[2023-11-01] MEDS: methylPREDNISolone SOD SUCC 125 MG/2 ML VL IV ONE (17:30)
[2023-11-01 17:59] LABS: Urine Bacteria FEW /hpf (None Seen); Urine Blood Negative /uL (Negative); Urine Clarity Clear (Clear); Urine Color Colorless (Yellow); Urine Protein, UAD Negative (Negative); Urine Specific Gravity 1.013 (1.001-1.035); Urine WBC 1 /hpf (0 - 5)
[2023-11-01] MEDS: PIPERACILLIN-TAZOB 3.375GM 100 ML IV ONE (18:00)
[2023-11-01 18:47] LABS: Basophils # (auto) 0 10 ^3/uL (0-0.2); Basophils % (auto) 0.1 % (0.0-2.0); Eosinophils # (auto) 0 10 ^3/uL (0-0.8); Eosinophils % (auto) 0.2 % (0.0-7.0); Hematocrit 34.2 % (36.0-46.0); Hemoglobin 11.4 g/dL (12.2-16.2); Lymphocytes % (auto) 9.8 % (10.0-50.0); Mean Corpuscular Hemoglobin 30.7 pg (28.0-32.0); Mean Corpuscular Hgb Conc. 33.4 g/dL (32.0-36.0); Mean Corpuscular Volume 91.9 fL (80.0-100.0); Monocytes # (auto) 1.4 10 ^3/uL (0-1.3); Monocytes % (auto) 12.7 % (0.0-12.0); Neutrophils # (auto) 8.3 10 ^3/uL (1.6-8.6); Neutrophils % (auto) 77.2 % (37.0-80.0); Nucleated Red Blood Cells % 0.1 %; Red Blood Cells 3.72 10^6/uL (4.0-5.20); Red Cell Distribution Width 13.1 % (11.8-14.3); White Blood Cell 10.7 10^3/uL (4.4-10.8)
[2023-11-01 18:52] LABS: INR 1.17 (0.9-1.15); Partial Thromboplastin Time 22.2 SEC (24.5-34.5); Prothrombin Time 12.2 sec (9.3-11.8)
[2023-11-01 18:58] LABS: Alanine Aminotransferase 18 U/L (7-40); Albumin 3.4 g/dL (3.2-4.8); Alkaline Phosphatase 62 U/L (46-116); Aspartate Aminotransferase 21 U/L (13-40); Blood Urea Nitrogen 17 mg/dL (9-23); Calcium 8.7 mg/dL (8.5-10.1); Chloride 84 mmol/L (98-107); Glucose 162 mg/dL (74-106); Potassium 3.2 mmol/L (3.5-5.1); Sodium 136 mmol/L (136-145)
[2023-11-01 18:59] LABS: Anion Gap 11.99999 (5-15); Bilirubin, Total 0.9 mg/dL (0.2-1.0); Total Protein 5.5 g/dL (5.7-8.2)
[2023-11-01 19:01] LABS: Carbon Dioxide > 40 mmol/L (20-30)
[2023-11-01 19:43] LABS: Base Excess 22.3 mmol/L (-2.0-2.0)
[2023-11-01] MEDS: hydrALAZINE HCL 20 MG/ML VL IV ONE (21:19)
[2023-11-01] MEDS ORDERED: HYDROcodone-ACET 5/325MG TAB PO PRN (22:00)
[2023-11-01] MEDS ORDERED: DOCUSATE SOD 100 MG CAP PO PRN (22:00)
[2023-11-01] MEDS ORDERED: ONDANSETRON HCL 4 MG/2 ML VIAL IV PRN (22:00)
[2023-11-01] MEDS ORDERED: methylPREDNISolone SOD SUCC 125 MG/2 ML VL IV SCH (22:00)
[2023-11-01] MEDS ORDERED: hydrALAZINE HCL 20 MG/ML VL IV PRN (22:00)
[2023-11-01] MEDS ORDERED: ACETAMINOPHEN 325 MG TAB PO PRN (22:00)
[2023-11-01] MEDS: IPRATROPIUM BROM 0.5 MG/2.5ML INH SOL NEB ONE (22:12)
[2023-11-01] MEDS: ALBUTEROL SULF 2.5 MG/0.5ML(0.5%) NEB SOLN NEB ONE (22:12)
[2023-11-01] MEDS ORDERED: IPRATROPIUM BROM 0.5 MG/2.5ML INH SOL NEB PRN (22:15)
[2023-11-01] MEDS: SODIUM CHLOR 0.9% PF (SALINE LOCK) 10ML VIAL/SYR IV SCH (22:35)
[2023-11-01] MEDS: POTASSIUM CHL 20MEQ/100ML 100 ML IV SCH (23:22)
[2023-11-01] MEDS: hydrALAZINE HCL 20 MG/ML VL IV PRN (23:35)
[2023-11-01] MEDS ORDERED: NITROGLYCERIN 0.4 MG SL TAB SL PRN (23:45)
[2023-11-01] MEDS: ETOMIDATE (2MG/ML) 20ML VIAL IV ONE (23:58)
[2023-11-01] MEDS: ROCURONIUM 10MG/ML 10ML VIAL IV ONE (23:58)
[2023-11-02] VITALS (71 sets, daily range): BP systolic 101–185; BP diastolic 41–88; PULSE 61–127; RESP 12–77; TEMP 96.1–99.1; O2SAT 96–100
[2023-11-02] MEDS: MIDAZOLAM DRIP 50 mg/50mL 50 ML IV ONE (00:04)
[2023-11-02] MEDS: ROCURONIUM 10MG/ML 10ML VIAL IV ONE (00:04)
[2023-11-02] MEDS: PROPOFOL 100 ML IV ONE (00:04)
[2023-11-02] MEDS: ETOMIDATE (2MG/ML) 20ML VIAL IV ONE (00:04)
[2023-11-02] MEDS: PROPOFOL 100 ML IV SCH (00:20)
[2023-11-02] MEDS: MIDAZOLAM DRIP 50 mg/50mL 50 ML IV SCH (00:20)
[2023-11-02 00:21] LABS: COVID19 ANTIGEN SOFIA FIA NEGATIVE (NEGATIVE)
[2023-11-02 01:42] LABS: Base Excess 22.7 mmol/L (-2.0-2.0)
[2023-11-02] MEDS: PIPERACILLIN-TAZOB 3.375GM 100 ML IV SCH (02:38)
[2023-11-02 05:09] LABS: Basophils # (auto) 0 10 ^3/uL (0-0.2); Basophils % (auto) 0.2 % (0.0-2.0); Eosinophils # (auto) 0 10 ^3/uL (0-0.8); Eosinophils % (auto) 0.1 % (0.0-7.0); Hematocrit 32.9 % (36.0-46.0); Hemoglobin 10.8 g/dL (12.2-16.2); Lymphocytes # (auto) 0.3 10 ^3/uL (0.4-5.4); Lymphocytes % (auto) 3.2 % (10.0-50.0); Mean Corpuscular Hgb Conc. 32.8 g/dL (32.0-36.0); Mean Corpuscular Volume 91.5 fL (80.0-100.0); Monocytes # (auto) 0.7 10 ^3/uL (0-1.3); Monocytes % (auto) 7.3 % (0.0-12.0); Neutrophils # (auto) 8.3 10 ^3/uL (1.6-8.6); Neutrophils % (auto) 89.2 % (37.0-80.0); Nucleated Red Blood Cells % 0.2 %; Red Cell Distribution Width 13.5 % (11.8-14.3); White Blood Cell 9.3 10^3/uL (4.4-10.8)
[2023-11-02 05:23] LABS: Alanine Aminotransferase 15 U/L (7-40); Albumin 2.9 g/dL (3.2-4.8); Alkaline Phosphatase 57 U/L (46-116); Aspartate Aminotransferase 17 U/L (13-40); BUN/Creatinine Ratio 40.5 (10.0-20.0); Bilirubin, Total 1.1 mg/dL (0.2-1.0); Blood Urea Nitrogen 17 mg/dL (9-23); Calcium 7.9 mg/dL (8.7-10.4); Chloride 85 mmol/L (98-107); Glucose 233 mg/dL (74-106); Potassium 2.8 mmol/L (3.5-5.1); Sodium 134 mmol/L (136-145); Total Protein 4.8 g/dL (5.7-8.2)
[2023-11-02 05:24] LABS: Anion Gap 8.99999 (5-15)
[2023-11-02 05:27] LABS: Carbon Dioxide > 40 mmol/L (20-30)
[2023-11-02] MEDS: methylPREDNISolone SOD SUCC 125 MG/2 ML VL IV SCH (06:06)
[2023-11-02 06:59] LABS: Basophils # (auto) 0 10 ^3/uL (0-0.2); Basophils % (auto) 0.1 % (0.0-2.0); Eosinophils # (auto) 0 10 ^3/uL (0-0.8); Eosinophils % (auto) 0.5 % (0.0-7.0); Hematocrit 34.2 % (36.0-46.0); Hemoglobin 11.1 g/dL (12.2-16.2); Lymphocytes # (auto) 0.4 10 ^3/uL (0.4-5.4); Lymphocytes % (auto) 4.4 % (10.0-50.0); Mean Corpuscular Hemoglobin 29.9 pg (28.0-32.0); Mean Corpuscular Hgb Conc. 32.4 g/dL (32.0-36.0); Mean Corpuscular Volume 92.2 fL (80.0-100.0); Monocytes # (auto) 0.8 10 ^3/uL (0-1.3); Monocytes % (auto) 9.5 % (0.0-12.0); Neutrophils # (auto) 7.2 10 ^3/uL (1.6-8.6); Neutrophils % (auto) 85.5 % (37.0-80.0); Nucleated Red Blood Cells % 0.1 %; Red Blood Cells 3.71 10^6/uL (4.0-5.20); Red Cell Distribution Width 13.1 % (11.8-14.3); White Blood Cell 8.4 10^3/uL (4.4-10.8)
[2023-11-02 07:09] LABS: Alanine Aminotransferase 18 U/L (7-40); Albumin 2.9 g/dL (3.2-4.8); Alkaline Phosphatase 59 U/L (46-116); Aspartate Aminotransferase 21 U/L (13-40); BUN/Creatinine Ratio 29.2 (10.0-20.0); Blood Urea Nitrogen 14 mg/dL (9-23); Calcium 8.4 mg/dL (8.5-10.1); Chloride 87 mmol/L (98-107); Glucose 218 mg/dL (74-106); Sodium 134 mmol/L (136-145)
[2023-11-02 07:10] LABS: Bilirubin, Total 1.4 mg/dL (0.2-1.0)
[2023-11-02 07:47] LABS: Anion Gap 6.99999 (5-15); Carbon Dioxide > 40 mmol/L (20-30)
[2023-11-02 08:30] LABS: Magnesium 1.8 mg/dL (1.6-2.6)
[2023-11-02] MEDS: POTASSIUM CHL 20MEQ/100ML 100 ML IV SCH (09:00)
[2023-11-02] MEDS: acetaZOLAMIDE SODIUM 500 MG VL IV SCH (12:00)
[2023-11-02] MEDS: methylPREDNISolone SOD SUCC 40 MG/ML VL IV SCH (12:00)
[2023-11-02] MEDS: ENOXAPARIN SOD 40 MG/0.4 ML SYRINGE SC SCH (12:11)
[2023-11-02] MEDS: BENAZEPRIL HCL 10 MG TAB PO SCH (12:12)
[2023-11-02] MEDS: ASPirin 81 mg TAB PO SCH (12:12)
[2023-11-02] MEDS: acetaZOLAMIDE SODIUM 500 MG VL IV ONE (13:31)
[2023-11-02] MEDS: IPRATROPIUM BROM 0.5 MG/2.5ML INH SOL NEB SCH (13:36)
[2023-11-02] MEDS: ALBUTEROL SULF 2.5 MG/0.5ML(0.5%) NEB SOLN NEB PRN (17:44)
[2023-11-02 18:47] LABS: Potassium 2.7 mmol/L (3.5-5.1)
[2023-11-02 18:53] LABS: Magnesium 1.8 mg/dL (1.6-2.6)
[2023-11-02] MEDS: POTASSIUM CHL 20 Meq TABLET PO ONE (19:30)
[2023-11-02] MEDS: MAGNESIUM SULFATE 1GM/100ML 100 ML IV SCH (20:31)
[2023-11-02] MEDS: POTASSIUM EFFERVESENT TAB 25 MEQ NG NR (23:36)
[2023-11-03] VITALS (101 sets, daily range): BP systolic 72–154; BP diastolic 28–79; PULSE 85–120; RESP 12–23; TEMP 97–98.6; O2SAT 96–100
[2023-11-03] MEDS ORDERED: POTASSIUM CHL 20 Meq TABLET PO ONE
[2023-11-03 03:51] LABS: Potassium 2.9 mmol/L (3.5-5.1)
[2023-11-03 03:58] LABS: Magnesium 2.3 mg/dL (1.6-2.6)
[2023-11-03 07:02] LABS: Base Excess 16.2 mmol/L (-2.0-2.0)
[2023-11-03] MEDS: POTASSIUM CHL 20MEQ/100ML 100 ML IV SCH ×2 (07:31→12:42)
[2023-11-03 10:00] LABS: Eosinophils # (auto) 0 10 ^3/uL (0-0.8); Nucleated Red Blood Cells % 0.1 %
[2023-11-03 10:05] LABS: Basophils # (auto) 0 10 ^3/uL (0-0.2); Hemoglobin 11.5 g/dL (12.2-16.2); Lymphocytes # (auto) 0.6 10 ^3/uL (0.4-5.4); Lymphocytes % (auto) 3.3 % (10.0-50.0); Mean Corpuscular Hemoglobin 29.8 pg (28.0-32.0); Mean Corpuscular Hgb Conc. 31.2 g/dL (32.0-36.0); Mean Corpuscular Volume 95.2 fL (80.0-100.0); Monocytes # (auto) 2.6 10 ^3/uL (0-1.3); Monocytes % (auto) 13.9 % (0.0-12.0); Neutrophils # (auto) 15.6 10 ^3/uL (1.6-8.6); Neutrophils % (auto) 82.8 % (37.0-80.0); Red Blood Cells 3.88 10^6/uL (4.0-5.20); Red Cell Distribution Width 13.4 % (11.8-14.3); White Blood Cell 18.8 10^3/uL (4.4-10.8)
[2023-11-03 10:18] LABS: Alanine Aminotransferase 16 U/L (7-40); Alkaline Phosphatase 61 U/L (46-116); Aspartate Aminotransferase 20 U/L (13-40); BUN/Creatinine Ratio 21.4 (10.0-20.0); Blood Urea Nitrogen 12 mg/dL (9-23); Calcium 8.6 mg/dL (8.5-10.1); Chloride 87 mmol/L (98-107); Glucose 204 mg/dL (74-106); Potassium 3.5 mmol/L (3.5-5.1); Sodium 131 mmol/L (136-145)
[2023-11-03 10:19] LABS: Total Protein 5.2 g/dL (5.7-8.2)
[2023-11-03] MEDS ORDERED: GLYCOPYRROLATE 0.2 MG/ML 1ML VIAL ONE (10:55)
[2023-11-03] MEDS ORDERED: LIDOCAINE 2%HCL (LOCAL ANESTH.) INJ 20ML MDV ONE (10:55)
[2023-11-03] MEDS ORDERED: EPINEPHrine HCL 1 MG/1 ML AMP ONE (10:55)
[2023-11-03] MEDS ORDERED: LIDOCAINE 2% JELLY 11ml (GLYDO) ONE (10:55)
[2023-11-03 11:46] LABS: Anion Gap 3.99999 (5-15)
[2023-11-03 11:47] LABS: Carbon Dioxide > 40 mmol/L (20-30)
[2023-11-03] MEDS: NOREPINEPHRINE 8 MG/250ML KIT 250 ML IV SCH (13:33)
[2023-11-03] MEDS: PANTOPRAZOLE 40 MG/10 ML VIAL INJ IV ONE (13:35)
[2023-11-04] VITALS (114 sets, daily range): BP systolic 64–139; BP diastolic 20–70; PULSE 79–107; RESP 12–20; TEMP 97–98.8; O2SAT 90–100
[2023-11-04 04:18] LABS: Basophils # (auto) 0 10 ^3/uL (0-0.2); Eosinophils # (auto) 0 10 ^3/uL (0-0.8); Eosinophils % (auto) 0.2 % (0.0-7.0); Hemoglobin 9.9 g/dL (12.2-16.2); Lymphocytes # (auto) 1.6 10 ^3/uL (0.4-5.4); Lymphocytes % (auto) 11.9 % (10.0-50.0); Mean Corpuscular Hemoglobin 30.2 pg (28.0-32.0); Mean Corpuscular Hgb Conc. 32.9 g/dL (32.0-36.0); Mean Corpuscular Volume 91.9 fL (80.0-100.0); Monocytes # (auto) 1.7 10 ^3/uL (0-1.3); Monocytes % (auto) 12.3 % (0.0-12.0); Neutrophils # (auto) 10.4 10 ^3/uL (1.6-8.6); Neutrophils % (auto) 75.6 % (37.0-80.0); Nucleated Red Blood Cells % 0.1 %; Red Blood Cells 3.26 10^6/uL (4.0-5.20); Red Cell Distribution Width 13.4 % (11.8-14.3); White Blood Cell 13.7 10^3/uL (4.4-10.8)
[2023-11-04 04:42] LABS: Alanine Aminotransferase 14 U/L (7-40); Alkaline Phosphatase 59 U/L (46-116); Aspartate Aminotransferase 15 U/L (13-40); BUN/Creatinine Ratio 28.6 (10.0-20.0); Bilirubin, Total 0.8 mg/dL (0.2-1.0); Blood Urea Nitrogen 16 mg/dL (9-23); Calcium 8.4 mg/dL (8.5-10.1); Chloride 90 mmol/L (98-107); Glucose 133 mg/dL (74-106); Potassium 3.1 mmol/L (3.5-5.1); Sodium 134 mmol/L (136-145)
[2023-11-04 04:43] LABS: Total Protein 4.8 g/dL (5.7-8.2)
[2023-11-04 05:05] LABS: Anion Gap 3.99999 (5-15); Carbon Dioxide > 40 mmol/L (20-30)
[2023-11-04 07:43] LABS: Base Excess 15.7 mmol/L (-2.0-2.0)
[2023-11-04] MEDS: PANTOPRAZOLE 40 MG/10 ML VIAL INJ IV SCH (11:29)
[2023-11-04] MEDS: POTASSIUM CHL 20MEQ/100ML 100 ML IV SCH (12:59)
[2023-11-05] VITALS (82 sets, daily range): BP systolic 41–156; BP diastolic 21–61; PULSE 70–106; RESP 12–23; TEMP 96.8–99; O2SAT 99–100
[2023-11-05 03:53] LABS: Basophils # (auto) 0 10 ^3/uL (0-0.2); Basophils % (auto) 0.1 % (0.0-2.0); Eosinophils # (auto) 0.1 10 ^3/uL (0-0.8); Eosinophils % (auto) 0.7 % (0.0-7.0); Hematocrit 25.9 % (36.0-46.0); Hemoglobin 8.7 g/dL (12.2-16.2); Lymphocytes # (auto) 1.1 10 ^3/uL (0.4-5.4); Mean Corpuscular Hemoglobin 30.4 pg (28.0-32.0); Mean Corpuscular Hgb Conc. 33.4 g/dL (32.0-36.0); Mean Corpuscular Volume 90.8 fL (80.0-100.0); Monocytes # (auto) 1.1 10 ^3/uL (0-1.3); Monocytes % (auto) 10.1 % (0.0-12.0); Neutrophils # (auto) 8.9 10 ^3/uL (1.6-8.6); Neutrophils % (auto) 79.1 % (37.0-80.0); Red Blood Cells 2.86 10^6/uL (4.0-5.20); Red Cell Distribution Width 13.2 % (11.8-14.3); White Blood Cell 11.3 10^3/uL (4.4-10.8)
[2023-11-05 04:18] LABS: Alanine Aminotransferase 14 U/L (7-40); Albumin 2.8 g/dL (3.2-4.8); Alkaline Phosphatase 57 U/L (46-116); Anion Gap 3 (5-15); Aspartate Aminotransferase 18 U/L (13-40); Blood Urea Nitrogen 13 mg/dL (9-23); Calcium 7.7 mg/dL (8.7-10.4); Carbon Dioxide 38 mmol/L (20-30); Chloride 92 mmol/L (98-107); Glucose 132 mg/dL (74-106); Potassium 2.7 mmol/L (3.5-5.1); Sodium 133 mmol/L (136-145)
[2023-11-05 04:19] LABS: Bilirubin, Total 0.7 mg/dL (0.2-1.0); Total Protein 4.6 g/dL (5.7-8.2)
[2023-11-05 07:46] LABS: Base Excess 9.1 mmol/L (-2.0-2.0)
[2023-11-05] MEDS ORDERED: MEPERIDINE HCL (25 MG/ML) 1ML VIAL IV ONE ×2 (10:45)
[2023-11-05] MEDS: POTASSIUM CHL 20MEQ/100ML 100 ML IV SCH (12:16)
[2023-11-05 21:48] LABS: Alanine Aminotransferase 14 U/L (7-40); Albumin 2.9 g/dL (3.2-4.8); Alkaline Phosphatase 61 U/L (46-116); Anion Gap 2 (5-15); Aspartate Aminotransferase 20 U/L (13-40); BUN/Creatinine Ratio 32.4 (10.0-20.0); Bilirubin, Total 0.7 mg/dL (0.2-1.0); Blood Urea Nitrogen 12 mg/dL (9-23); Carbon Dioxide 38 mmol/L (20-30); Chloride 95 mmol/L (98-107); Glucose 118 mg/dL (74-106); Sodium 135 mmol/L (136-145); Total Protein 4.8 g/dL (5.7-8.2)
[2023-11-06] VITALS (116 sets, daily range): BP systolic 93–166; BP diastolic 23–256; PULSE 64–101; RESP 12–31; TEMP 97.9–99.5; O2SAT 97–100
[2023-11-06 02:46] LABS: Alanine Aminotransferase 16 U/L (7-40); Alkaline Phosphatase 63 U/L (46-116); Anion Gap 3 (5-15); Aspartate Aminotransferase 17 U/L (13-40); BUN/Creatinine Ratio 26.8 (10.0-20.0); Basophils # (auto) 0 10 ^3/uL (0-0.2); Basophils % (auto) 0.1 % (0.0-2.0); Bilirubin, Total 0.7 mg/dL (0.2-1.0); Blood Urea Nitrogen 11 mg/dL (9-23); Calcium 7.8 mg/dL (8.7-10.4); Carbon Dioxide 37 mmol/L (20-30); Chloride 95 mmol/L (98-107); Eosinophils # (auto) 0.2 10 ^3/uL (0-0.8); Eosinophils % (auto) 1.8 % (0.0-7.0); Glucose 109 mg/dL (74-106); Hematocrit 26.1 % (36.0-46.0); Hemoglobin 8.7 g/dL (12.2-16.2); Lymphocytes # (auto) 1.3 10 ^3/uL (0.4-5.4); Lymphocytes % (auto) 10.4 % (10.0-50.0); Mean Corpuscular Hgb Conc. 33.2 g/dL (32.0-36.0); Mean Corpuscular Volume 90.2 fL (80.0-100.0); Monocytes % (auto) 8.1 % (0.0-12.0); Neutrophils % (auto) 79.6 % (37.0-80.0); Potassium 2.9 mmol/L (3.5-5.1); Red Blood Cells 2.89 10^6/uL (4.0-5.20); Red Cell Distribution Width 13.5 % (11.8-14.3); Sodium 135 mmol/L (136-145); White Blood Cell 12.5 10^3/uL (4.4-10.8)
[2023-11-06 02:47] LABS: Total Protein 4.8 g/dL (5.7-8.2)
[2023-11-06] MEDS: POTASSIUM CHL 20MEQ/100ML 200 ML IV ONE (05:08)
[2023-11-06] MEDS: POTASSIUM CHL 20MEQ/100ML 100 ML IV SCH ×2 (05:16→18:02)
[2023-11-06 12:37] LABS: Base Excess 10.2 mmol/L (-2.0-2.0)
[2023-11-06] MEDS: KETOROLAC TROMETH 30 MG/ML 1ML VIAL IV PRN (12:41)
[2023-11-06] MEDS: MEROPENEM 1GM IVPB 50 ML IV SCH (15:43)
[2023-11-07] VITALS (86 sets, daily range): BP systolic 86–193; BP diastolic 25–82; PULSE 63–97; RESP 12–72; TEMP 97.9–98.6; O2SAT 95–100
[2023-11-07 02:51] LABS: Basophils # (auto) 0 10 ^3/uL (0-0.2); Eosinophils # (auto) 0.2 10 ^3/uL (0-0.8); Hematocrit 23.5 % (36.0-46.0); Hemoglobin 7.8 g/dL (12.2-16.2); Lymphocytes # (auto) 1.1 10 ^3/uL (0.4-5.4); Monocytes # (auto) 0.8 10 ^3/uL (0-1.3); Neutrophils # (auto) 6.1 10 ^3/uL (1.6-8.6); White Blood Cell 8.2 10^3/uL (4.4-10.8)
[2023-11-07 02:53] LABS: Basophils % (auto) 0.1 % (0.0-2.0); Eosinophils % (auto) 2.1 % (0.0-7.0); Lymphocytes % (auto) 13.3 % (10.0-50.0); Mean Corpuscular Hemoglobin 30.5 pg (28.0-32.0); Mean Corpuscular Hgb Conc. 33.4 g/dL (32.0-36.0); Mean Corpuscular Volume 91.3 fL (80.0-100.0); Monocytes % (auto) 9.4 % (0.0-12.0); Neutrophils % (auto) 75.1 % (37.0-80.0); Red Blood Cells 2.57 10^6/uL (4.0-5.20); Red Cell Distribution Width 13.6 % (11.8-14.3)
[2023-11-07 03:10] LABS: Alanine Aminotransferase 13 U/L (7-40); Albumin 2.9 g/dL (3.2-4.8); Alkaline Phosphatase 63 U/L (46-116); Anion Gap 4 (5-15); Aspartate Aminotransferase 17 U/L (13-40); Bilirubin, Total 0.8 mg/dL (0.2-1.0); Blood Urea Nitrogen 9 mg/dL (9-23); Calcium 7.9 mg/dL (8.7-10.4); Carbon Dioxide 34 mmol/L (20-30); Chloride 98 mmol/L (98-107); Glucose 81 mg/dL (74-106); Potassium 3.3 mmol/L (3.5-5.1); Sodium 136 mmol/L (136-145); Total Protein 4.8 g/dL (5.7-8.2)
[2023-11-07 07:36] LABS: Base Excess 7.5 mmol/L (-2.0-2.0)
[2023-11-07 10:32] LABS: Base Excess 6.3 mmol/L (-2.0-2.0)
[2023-11-07] MEDS: ALBUTEROL SULF 2.5 MG/0.5ML(0.5%) NEB SOLN NEB ONE (12:44)
[2023-11-07] MEDS: POTASSIUM CHL 20MEQ/100ML 100 ML IV SCH (16:46)
[2023-11-08] VITALS (44 sets, daily range): BP systolic 117–188; BP diastolic 44–97; PULSE 65–108; RESP 14–72; TEMP 98–99; O2SAT 93–100
[2023-11-08 04:01] LABS: Chloride 100 mmol/L (98-107); Potassium 3.8 mmol/L (3.5-5.1); Sodium 139 mmol/L (136-145)
[2023-11-08 04:02] LABS: Anion Gap 7 (5-15); Carbon Dioxide 32 mmol/L (20-30)
[2023-11-08 04:03] LABS: Calcium 8.1 mg/dL (8.7-10.4)
[2023-11-08 04:08] LABS: BUN/Creatinine Ratio 29.6 (10.0-20.0); Blood Urea Nitrogen 8 mg/dL (9-23); Glucose 65 mg/dL (74-106)
[2023-11-09] VITALS (11 sets, daily range): BP systolic 107–137; BP diastolic 37–55; PULSE 71–99; RESP 15–20; TEMP 97.5–98.1; O2SAT 97–100
[2023-11-09] MEDS: ALBUTEROL SULF 2.5 MG/0.5ML(0.5%) NEB SOLN NEB SCH (07:30)
[2023-11-09] MEDS: Ensure HIGH Protein Chocolate 8oz Bottle PO SCH (12:00)
[2023-11-09 13:02] LABS: COVID19 ANTIGEN SOFIA FIA NEGATIVE (NEGATIVE)
[2023-11-10] VITALS (11 sets, daily range): BP systolic 114–157; BP diastolic 44–68; PULSE 71–95; RESP 14–21; TEMP 97.6–98.5; O2SAT 94–100
[2023-11-10] MEDS: diphenhdrAMINE HCL 50 MG/1 ML VL IV PRN (09:49)
[2023-11-10 10:49] LABS: Basophils # (auto) 0 10 ^3/uL (0-0.2); Basophils % (auto) 0.2 % (0.0-2.0); Eosinophils # (auto) 0.1 10 ^3/uL (0-0.8); Hemoglobin 7.3 g/dL (12.2-16.2); Lymphocytes # (auto) 1.1 10 ^3/uL (0.4-5.4); Neutrophils # (auto) 4.2 10 ^3/uL (1.6-8.6); Red Cell Distribution Width 13.6 % (11.8-14.3)
[2023-11-10 10:51] LABS: Eosinophils % (auto) 2.5 % (0.0-7.0); Hematocrit 22.2 % (36.0-46.0); Lymphocytes % (auto) 18.4 % (10.0-50.0); Mean Corpuscular Hemoglobin 30.3 pg (28.0-32.0); Mean Corpuscular Hgb Conc. 32.8 g/dL (32.0-36.0); Mean Corpuscular Volume 92.4 fL (80.0-100.0); Monocytes # (auto) 0.6 10 ^3/uL (0-1.3); Monocytes % (auto) 9.3 % (0.0-12.0); Neutrophils % (auto) 69.6 % (37.0-80.0)
[2023-11-10 11:19] LABS: Alanine Aminotransferase 11 U/L (7-40); Alkaline Phosphatase 71 U/L (46-116); Anion Gap 1 (5-15); Aspartate Aminotransferase < 8 U/L (13-40); BUN/Creatinine Ratio 53.3 (10.0-20.0); Blood Urea Nitrogen 16 mg/dL (9-23); Calcium 8.4 mg/dL (8.5-10.1); Carbon Dioxide 37 mmol/L (20-30); Chloride 101 mmol/L (98-107); Glucose 176 mg/dL (74-106); Potassium 4.3 mmol/L (3.5-5.1); Sodium 139 mmol/L (136-145)
[2023-11-10 11:20] LABS: Bilirubin, Total 0.5 mg/dL (0.2-1.0)
[2023-11-11] VITALS (9 sets, daily range): BP systolic 139–158; BP diastolic 54–69; PULSE 72–94; RESP 17–20; TEMP 97.7–98.5; O2SAT 94–99
[2023-11-11] MEDS: APIXABAN 5 MG TAB PO SCH (10:06)
[2023-11-11] MEDS: KETOROLAC TROMETH 30 MG/ML 1ML VIAL IV ONE (18:58)
== END 2023-11-11 19:10 | DRG 207 ==
LOC: EDUNIT# 16:38 → EDBD 16:38 → ER 16:38 → TELE 23:37 → ICU WEST 11-02 08:00 → TELE-CENTR 11-08 22:39
PROVIDERS: ADMIT Nurse Practitioner Family; ATTEND Family Medicine
PROC: 5A09357 Assistance with Respiratory Ventilation, Less than 24 Consecutive Hours, Continuous Positive Airway Pressure (ICD-10-PCS; 2023-11-01)
PROC: 05HA33Z Insertion of Infusion Device into Left Brachial Vein, Percutaneous Approach (ICD-10-PCS; 2023-11-01)
PROC: B54NZZA Ultrasonography of Left Upper Extremity Veins, Guidance (ICD-10-PCS; 2023-11-01)
PROC: 5A1955Z Respiratory Ventilation, Greater than 96 Consecutive Hours (ICD-10-PCS; principal; 2023-11-02)
PROC: 0BH17EZ Insertion of Endotracheal Airway into Trachea, Via Natural or Artificial Opening (ICD-10-PCS; 2023-11-02)
PROC: 0B918ZZ Drainage of Trachea, Via Natural or Artificial Opening Endoscopic (ICD-10-PCS; 2023-11-03)
DX: J15.69 Pneumonia due to other Gram-negative bacteria (principal); J96.21 Acute and chronic respiratory failure with hypoxia; J96.22 Acute and chronic respiratory failure with hypercapnia; I50.23 Acute on chronic systolic (congestive) heart failure; J44.1 Chronic obstructive pulmonary disease with (acute) exacerbation; J45.41 Moderate persistent asthma with (acute) exacerbation; E87.21 Acute metabolic acidosis; I11.0 Hypertensive heart disease with heart failure; J69.0 Pneumonitis due to inhalation of food and vomit; J15.9 Unspecified bacterial pneumonia; F41.9 Anxiety disorder, unspecified; I25.10 Atherosclerotic heart disease of native coronary artery without angina pectoris; E87.6 Hypokalemia; I16.0 Hypertensive urgency; Z20.822 Contact with and (suspected) exposure to COVID-19; D69.6 Thrombocytopenia, unspecified; E66.01 Morbid (severe) obesity due to excess calories; F32.A Depression, unspecified; Z91.013 Allergy to seafood; Z88.1 Allergy status to other antibiotic agents; Z95.810 Presence of automatic (implantable) cardiac defibrillator; Z90.710 Acquired absence of both cervix and uterus; Z91.041 Radiographic dye allergy status; Z91.040 Latex allergy status; Z88.5 Allergy status to narcotic agent; Z88.2 Allergy status to sulfonamides; Z88.8 Allergy status to other drugs, medicaments and biological substances; Z91.018 Allergy to other foods; Z86.73 Personal history of transient ischemic attack (TIA), and cerebral infarction without residual deficits; Z68.33 Body mass index [BMI] 33.0-33.9, adult; Z90.13 Acquired absence of bilateral breasts and nipples; Z79.01 Long term (current) use of anticoagulants; Z85.3 Personal history of malignant neoplasm of breast; Z88.0 Allergy status to penicillin; Z88.6 Allergy status to analgesic agent
CPT/HCPCS: 36415; 36600; 71045; 80048; 80053; 81001; 82805; 83735; 83880; 84132; 84484; 85025; 85379; 85610; 85730; 87040; 87070; 87077; 87081; 87086; 87186; 87205; 87426; 92610; 93005; 93306; 93970; 93971; 94002; 94003; 94640; 94660; 97110; 97163; 97530; 99291; C9113; G0378; J0171; J1885; J2185; J2250; J2543; J2704; J3480

== ENCOUNTER 2023-11-14 04:50 | Inpatient (IN) | payer MEDICARE, MEDICAID ==
[~2023-11-14] VITALS: Ht 165.1 cm; Wt 111.2 kg
[2023-11-14] VITALS (12 sets, daily range): BP systolic 139; BP diastolic 57; PULSE 86–161; RESP 18–22; TEMP 99; O2SAT 95–100
[2023-11-14 07:09] LABS: Basophils # (auto) 0 10 ^3/uL (0-0.2); Basophils % (auto) 0.7 % (0.0-2.0); Eosinophils # (auto) 0.1 10 ^3/uL (0-0.8); Eosinophils % (auto) 2.3 % (0.0-7.0); Hematocrit 22.1 % (36.0-46.0); Hemoglobin 7.2 g/dL (12.2-16.2); Lymphocytes % (auto) 21.1 % (10.0-50.0); Mean Corpuscular Hemoglobin 30.5 pg (28.0-32.0); Mean Corpuscular Hgb Conc. 32.6 g/dL (32.0-36.0); Mean Corpuscular Volume 93.4 fL (80.0-100.0); Monocytes # (auto) 0.4 10 ^3/uL (0-1.3); Neutrophils # (auto) 3.2 10 ^3/uL (1.6-8.6); Neutrophils % (auto) 67.9 % (37.0-80.0); Nucleated Red Blood Cells % 0.1 %; Red Blood Cells 2.37 10^6/uL (4.0-5.20); White Blood Cell 4.7 10^3/uL (4.4-10.8)
[2023-11-14 07:23] LABS: Alanine Aminotransferase 12 U/L (7-40); Albumin 3.1 g/dL (3.2-4.8); Alkaline Phosphatase 83 U/L (46-116); Aspartate Aminotransferase 20 U/L (13-40); BUN/Creatinine Ratio 47.8 (10.0-20.0); Blood Urea Nitrogen 11 mg/dL (9-23); Calcium 8.9 mg/dL (8.5-10.1); Glucose 99 mg/dL (74-106)
[2023-11-14 07:24] LABS: Bilirubin, Direct 0.2 mg/dL (<0.3); Bilirubin, Total 0.6 mg/dL (0.2-1.0); INR 1.06 (0.9-1.15); Prothrombin Time 11.1 sec (9.3-11.8); Total Protein 4.8 g/dL (5.7-8.2)
[2023-11-14 07:44] LABS: Chloride 99 mmol/L (98-107); Potassium 4.3 mmol/L (3.5-5.1); Sodium 139 mmol/L (136-145)
[2023-11-14 07:45] LABS: Anion Gap 2 (5-15)
[2023-11-14 07:49] LABS: Carbon Dioxide 38 mmol/L (20-30)
[2023-11-14] MEDS: FUROSEMIDE 40 MG/4 ML VIAL IV ONE (08:45)
[2023-11-14] MEDS ORDERED: MORPHINE SULFATE INJ 2 MG/ml SYRG IV PRN (09:15)
[2023-11-14] MEDS ORDERED: NITROGLYCERIN 0.4 MG SL TAB SL PRN (09:15)
[2023-11-14] MEDS ORDERED: AZITHROMYCIN 500MG/ 250ML 250 ML IV ONE (09:15)
[2023-11-14] MEDS ORDERED: diphenhdrAMINE HCL 25 MG CAP PO PRN (09:15)
[2023-11-14] MEDS ORDERED: ASPirin-EC 81 mg tab PO PRN (09:15)
[2023-11-14] MEDS ORDERED: ALBUTEROL SULF 2.5 MG/0.5ML(0.5%) NEB SOLN NEB PRN (09:15)
[2023-11-14 09:56] LABS: Triglycerides 106 mg/dL (< 150)
[2023-11-14 09:57] LABS: LDL Cholesterol 92 mg/dL (< 100)
[2023-11-14 09:58] LABS: Cholesterol 133 mg/dL (< 200); HDL Cholesterol 31 mg/dL (40-59)
[2023-11-14] MEDS ORDERED: AZITHROMYCIN 500MG/ 250ML 250 ML IV SCH (10:00)
[2023-11-14] MEDS ORDERED: IPRATROPIUM BROM 0.5 MG/2.5ML INH SOL NEB SCH (10:00)
[2023-11-14] MEDS ORDERED: ENOXAPARIN SOD 40 MG/0.4 ML SYRINGE SC SCH (10:00)
[2023-11-14] MEDS ORDERED: APIXABAN 5 MG TAB PO SCH (10:00)
[2023-11-14] MEDS: FUROSEMIDE 20 MG/2 ML VIAL IV SCH ×2 (10:08→22:00)
[2023-11-14] MEDS ORDERED: methylPREDNISolone SOD SUCC 125 MG/2 ML VL IV ONE (10:30)
[2023-11-14] MEDS: cefTRIAXone 1GM/50ML D5W 50 ML IV ONE (11:09)
[2023-11-14] MEDS: ASCORBIC ACID 500 MG TAB PO SCH (11:09)
[2023-11-14] MEDS: BENAZEPRIL HCL 10 MG TAB PO SCH (11:10)
[2023-11-14] MEDS: methylPREDNISolone SOD SUCC 125 MG/2 ML VL IV ONE (11:10)
[2023-11-14] MEDS: diphenhdrAMINE HCL 50 MG/1 ML VL IV ONE (11:11)
[2023-11-14 11:27] LABS: COVID19 ANTIGEN SOFIA FIA NEGATIVE (NEGATIVE)
[2023-11-14 11:31] LABS: Folate (Folic Acid) > 24.00 ng/mL (>5.38)
[2023-11-14 11:32] LABS: Rapid Influenza A Negative (Negative)
[2023-11-14 11:38] LABS: Rapid Influenza B Positive (Negative)
[2023-11-14] MEDS: ALBUTEROL SULF 2.5 MG/0.5ML(0.5%) NEB SOLN NEB SCH (11:39)
[2023-11-14 12:16] LABS: Platelet Estimate Adequate
[2023-11-14 12:17] LABS: Large Platelets FEW; Ovalocytes FEW; Stomatocytes Few
[2023-11-14] MEDS: OSELTAMIVIR 75 MG CAP PO ONE (14:32)
[2023-11-14] MEDS: methylPREDNISolone SOD SUCC 40 MG/ML VL IV SCH (22:00)
[2023-11-14] MEDS ORDERED: methylPREDNISolone SOD SUCC 40 MG/ML VL IV SCH (22:00)
[2023-11-14] MEDS: ACETAMINOPHEN/CODEINE#3 (300/30mg) TAB PO PRN (22:00)
[2023-11-14] MEDS: OSELTAMIVIR 75 MG CAP PO SCH (22:00)
[2023-11-15] VITALS (18 sets, daily range): BP systolic 118–169; BP diastolic 41–73; PULSE 75–135; RESP 17–24; TEMP 97.9–98.9; O2SAT 94–100
[2023-11-15 05:37] LABS: Basophils # (auto) 0 10 ^3/uL (0-0.2); Basophils % (auto) 0.1 % (0.0-2.0); Eosinophils # (auto) 0 10 ^3/uL (0-0.8); Hemoglobin 7.3 g/dL (12.2-16.2); Lymphocytes # (auto) 0.3 10 ^3/uL (0.4-5.4); Monocytes # (auto) 0.1 10 ^3/uL (0-1.3); Neutrophils # (auto) 2.7 10 ^3/uL (1.6-8.6)
[2023-11-15 05:41] LABS: Eosinophils % (auto) 0.1 % (0.0-7.0); Hematocrit 22.4 % (36.0-46.0); Lymphocytes % (auto) 9.7 % (10.0-50.0); Mean Corpuscular Hemoglobin 30.3 pg (28.0-32.0); Mean Corpuscular Hgb Conc. 32.8 g/dL (32.0-36.0); Mean Corpuscular Volume 92.2 fL (80.0-100.0); Monocytes % (auto) 3.8 % (0.0-12.0); Neutrophils % (auto) 86.3 % (37.0-80.0); Nucleated Red Blood Cells % 0.2 %; Red Blood Cells 2.43 10^6/uL (4.0-5.20); Red Cell Distribution Width 13.9 % (11.8-14.3); White Blood Cell 3.1 10^3/uL (4.4-10.8)
[2023-11-15 05:57] LABS: Alkaline Phosphatase 76 U/L (46-116); BUN/Creatinine Ratio 34.1 (10.0-20.0); Blood Urea Nitrogen 14 mg/dL (9-23); Calcium 8.8 mg/dL (8.7-10.4); Chloride 98 mmol/L (98-107); Glucose 242 mg/dL (74-106); Potassium 4.2 mmol/L (3.5-5.1); Sodium 141 mmol/L (136-145)
[2023-11-15 05:58] LABS: Albumin 3.2 g/dL (3.2-4.8); Aspartate Aminotransferase 12 U/L (13-40); Bilirubin, Total 0.4 mg/dL (0.2-1.0); Total Protein 5.4 g/dL (5.7-8.2)
[2023-11-15 06:30] LABS: Anion Gap 2.99999 (5-15)
[2023-11-15 06:31] LABS: Alanine Aminotransferase < 9 U/L (7-40)
[2023-11-15 06:33] LABS: Carbon Dioxide > 40 mmol/L (20-30)
[2023-11-15] MEDS: cefTRIAXone 1GM/50ML D5W 50 ML IV SCH (09:00)
[2023-11-15] MEDS: PANTOPRAZOLE 40 MG/10 ML VIAL INJ IV SCH (10:13)
[2023-11-15 12:29] LABS: Magnesium 1.4 mg/dL (1.6-2.6)
[2023-11-15] MEDS: LACTULOSE 20Gm/30ML SOLN PO ONE (12:46)
[2023-11-15 12:49] LABS: CRP High Sensitivity 1.92 mg/dL (<1.0)
[2023-11-15 13:19] LABS: Lactic Acid w/Reflex 2.6 mmol/L (0.4-2.0)
[2023-11-15] MEDS: LACTULOSE 20Gm/30ML SOLN PO SCH (22:21)
[2023-11-15 23:14] LABS: Urine Bacteria NONE SEEN /hpf (None Seen); Urine Blood TRACE /uL (Negative); Urine Budding Yeast LOADED /hpf (None Seen); Urine Clarity HAZY (Clear); Urine Color Yellow (Yellow); Urine Mucus FEW (None Seen); Urine Protein, UAD 1+ (Negative); Urine Specific Gravity 1.022 (1.001-1.035); Urine Urobilinogen Normal (Negative); Urine WBC 51 /hpf (0 - 5); Urine pH 5.5 (5.0-8.0)
[2023-11-15 23:16] LABS: Amphetamine Screen, Urine Neg (NEGATIVE); Barbiturate Scree,Urine Neg (NEGATIVE); Benzodiazephine Screen, Urine Neg (NEGATIVE); Cannabinoid Screen, Urine Neg (NEGATIVE); Cocaine Screen, Urine Neg (NEGATIVE); Opiate Scree,Urine Pos (NEGATIVE); Phencyclidine Screen, Urine Neg (NEGATIVE)
[2023-11-16] VITALS (21 sets, daily range): BP systolic 110–151; BP diastolic 31–80; PULSE 74–119; RESP 16–28; TEMP 98–98.6; O2SAT 94–100
[2023-11-16] MEDS ORDERED: IPRATROPIUM BROM 0.5 MG/2.5ML INH SOL NEB SCH (06:00)
[2023-11-16] MEDS ORDERED: ACETYLCYSTEINE 10 %(100MG/ML) SOL 4ML NEB SCH (06:00)
[2023-11-16 07:48] LABS: Basophils # (auto) 0 10 ^3/uL (0-0.2); Basophils % (auto) 0.1 % (0.0-2.0); Eosinophils # (auto) 0 10 ^3/uL (0-0.8); Nucleated Red Blood Cells % 0.1 %
[2023-11-16 07:50] LABS: Hematocrit 23.6 % (36.0-46.0); Hemoglobin 7.6 g/dL (12.2-16.2); Lymphocytes # (auto) 0.4 10 ^3/uL (0.4-5.4); Lymphocytes % (auto) 7.1 % (10.0-50.0); Mean Corpuscular Hemoglobin 30.1 pg (28.0-32.0); Mean Corpuscular Hgb Conc. 32.2 g/dL (32.0-36.0); Mean Corpuscular Volume 93.5 fL (80.0-100.0); Monocytes # (auto) 0.4 10 ^3/uL (0-1.3); Monocytes % (auto) 7.1 % (0.0-12.0); Neutrophils # (auto) 4.2 10 ^3/uL (1.6-8.6); Neutrophils % (auto) 85.7 % (37.0-80.0); Red Blood Cells 2.53 10^6/uL (4.0-5.20); Red Cell Distribution Width 14.9 % (11.8-14.3)
[2023-11-16 07:54] LABS: Chloride 99 mmol/L (98-107); Sodium 142 mmol/L (136-145)
[2023-11-16 08:00] LABS: BUN/Creatinine Ratio 45.9 (10.0-20.0); Blood Urea Nitrogen 17 mg/dL (9-23); Glucose 177 mg/dL (74-106)
[2023-11-16 08:04] LABS: Anion Gap 2.99999 (5-15)
[2023-11-16 08:05] LABS: Carbon Dioxide > 40 mmol/L (20-30); Lactic Acid w/Reflex 2.2 mmol/L (0.4-2.0)
[2023-11-16] MEDS: APIXABAN 5 MG TAB PO SCH (08:22)
[2023-11-16] MEDS: MEROPENEM 1GM IVPB 50 ML IV SCH (12:16)
[2023-11-16] MEDS: LACTULOSE 20Gm/30ML SOLN PO ONE (12:16)
[2023-11-16] MEDS: diphenhdrAMINE HCL 50 MG/1 ML VL IV PRN (12:29)
[2023-11-16] MEDS ORDERED: LORazepam 0.5 MG TAB PO PRN (13:15)
[2023-11-16] MEDS: FUROSEMIDE 20 MG/2 ML VIAL IV ONE (17:50)
[2023-11-17] VITALS (26 sets, daily range): BP systolic 109–154; BP diastolic 53–94; PULSE 70–114; RESP 14–40; TEMP 97–99.2; O2SAT 90–100
[2023-11-17 06:28] LABS: Basophils # (auto) 0 10 ^3/uL (0-0.2); Eosinophils # (auto) 0 10 ^3/uL (0-0.8); Lymphocytes # (auto) 0.5 10 ^3/uL (0.4-5.4); Monocytes # (auto) 0.3 10 ^3/uL (0-1.3); Neutrophils # (auto) 2.7 10 ^3/uL (1.6-8.6); Nucleated Red Blood Cells % 0.2 %; White Blood Cell 3.5 10^3/uL (4.4-10.8)
[2023-11-17 06:31] LABS: Hematocrit 24.2 % (36.0-46.0); Lymphocytes % (auto) 13.7 % (10.0-50.0); Mean Corpuscular Hemoglobin 30.8 pg (28.0-32.0); Mean Corpuscular Hgb Conc. 33.2 g/dL (32.0-36.0); Mean Corpuscular Volume 92.7 fL (80.0-100.0); Neutrophils % (auto) 77.3 % (37.0-80.0); Red Cell Distribution Width 14.8 % (11.8-14.3)
[2023-11-17 06:35] LABS: Chloride 97 mmol/L (98-107); Potassium 4.1 mmol/L (3.5-5.1); Sodium 142 mmol/L (136-145)
[2023-11-17 06:37] LABS: Calcium 8.4 mg/dL (8.7-10.4)
[2023-11-17 06:41] LABS: Glucose 192 mg/dL (74-106)
[2023-11-17 06:42] LABS: BUN/Creatinine Ratio 52.6 (10.0-20.0); Blood Urea Nitrogen 20 mg/dL (9-23); Magnesium 1.6 mg/dL (1.6-2.6)
[2023-11-17 06:53] LABS: Anion Gap 4.99999 (5-15)
[2023-11-17 06:54] LABS: Carbon Dioxide > 40 mmol/L (20-30)
[2023-11-17] MEDS ORDERED: BENA-30 PO (11:31)
[2023-11-17] MEDS ORDERED: FURO40TA4 PO (11:32)
[2023-11-17] MEDS ORDERED: PANT40TA2 PO (11:34)
[2023-11-17] MEDS ORDERED: ALBU108A5 INH (11:37)
[2023-11-17] MEDS: MAGNESIUM SULFATE 1GM/100ML 100 ML IV SCH (13:07)
[2023-11-17 16:03] LABS: Alanine Aminotransferase 15 U/L (7-40); Albumin 3.4 g/dL (3.2-4.8); Alkaline Phosphatase 73 U/L (46-116); Aspartate Aminotransferase 20 U/L (13-40); BUN/Creatinine Ratio 54.8 (10.0-20.0); Blood Urea Nitrogen 23 mg/dL (9-23); Calcium 8.4 mg/dL (8.7-10.4); Chloride 96 mmol/L (98-107); Glucose 201 mg/dL (74-106); Magnesium 1.9 mg/dL (1.6-2.6); Potassium 3.6 mmol/L (3.5-5.1); Sodium 142 mmol/L (136-145)
[2023-11-17 16:04] LABS: Bilirubin, Total 0.5 mg/dL (0.2-1.0); Total Protein 5.7 g/dL (5.7-8.2)
[2023-11-17 16:13] LABS: Anion Gap 5.99999 (5-15)
[2023-11-17 16:15] LABS: Carbon Dioxide > 40 mmol/L (20-30)
[2023-11-17 22:45] LABS: Urine Bacteria NONE SEEN /hpf (None Seen); Urine Blood 3+ /uL (Negative); Urine Clarity CLOUDY (Clear); Urine Mucus FEW (None Seen); Urine Protein, UAD TRACE (Negative); Urine Specific Gravity 1.016 (1.001-1.035); Urine Urobilinogen Normal (Negative); Urine WBC 72 /hpf (0 - 5); Urine WBC Clumps PRESENT /hpf (None Seen); Urine pH 5.5 (5.0-8.0)
[2023-11-17 22:46] LABS: Urine Color Yellow (Yellow)
[2023-11-18] VITALS (32 sets, daily range): BP systolic 134–159; BP diastolic 52–86; PULSE 67–109; RESP 14–26; TEMP 97.5–97.9; O2SAT 87–100
[2023-11-18 05:23] LABS: Hematocrit 24.3 % (36.0-46.0); White Blood Cell 3.4 10^3/uL (4.4-10.8)
[2023-11-18 05:25] LABS: Mean Corpuscular Hemoglobin 30.6 pg (28.0-32.0); Mean Corpuscular Hgb Conc. 33.1 g/dL (32.0-36.0); Mean Corpuscular Volume 92.6 fL (80.0-100.0); Red Blood Cells 2.62 10^6/uL (4.0-5.20); Red Cell Distribution Width 15.3 % (11.8-14.3)
[2023-11-18 05:31] LABS: Chloride 97 mmol/L (98-107); Potassium 3.9 mmol/L (3.5-5.1); Sodium 142 mmol/L (136-145)
[2023-11-18 05:32] LABS: Calcium 8.4 mg/dL (8.7-10.4)
[2023-11-18 05:36] LABS: Basophils % (manual) 0 (0.0-2.0); Blast Cells 0; Eosinophils % (manual) 0 (0-7); Myelocytes % 0; Promyelocytes % 0; Reactive Lymphocytes 0
[2023-11-18 05:37] LABS: BUN/Creatinine Ratio 56.4 (10.0-20.0); Blood Urea Nitrogen 22 mg/dL (9-23); Glucose 197 mg/dL (74-106)
[2023-11-18 05:39] LABS: Phosphorus 3.4 mg/dL (2.4-5.1)
[2023-11-18 05:46] LABS: Anion Gap 4.99999 (5-15)
[2023-11-18 05:47] LABS: Carbon Dioxide > 40 mmol/L (20-30)
[2023-11-18 09:40] LABS: Band Neutrophils % (manual) 6; Lymphocytes % (manual) 10 (10.0-50.0); Metamyelocytes % 1; Monocytes % (manual) 9 (0-12); Ovalocytes MANY; Platelet Estimate Adequate
[2023-11-18] MEDS ORDERED: ACETYLCYSTEINE 10 %(100MG/ML) SOL 4ML NEB SCH (14:00)
[2023-11-19] VITALS (26 sets, daily range): BP systolic 128–171; BP diastolic 54–79; PULSE 65–97; RESP 15–21; TEMP 97.6–99.7; O2SAT 97–100
[2023-11-19 06:37] LABS: Hematocrit 23.9 % (36.0-46.0); Hemoglobin 7.9 g/dL (12.2-16.2)
[2023-11-19 06:40] LABS: Mean Corpuscular Hemoglobin 30.3 pg (28.0-32.0); Mean Corpuscular Volume 91.9 fL (80.0-100.0); Red Cell Distribution Width 15.1 % (11.8-14.3); White Blood Cell 3.3 10^3/uL (4.4-10.8)
[2023-11-19 06:47] LABS: Chloride 94 mmol/L (98-107); Potassium 3.8 mmol/L (3.5-5.1); Sodium 141 mmol/L (136-145)
[2023-11-19 06:49] LABS: Calcium 8.6 mg/dL (8.5-10.1)
[2023-11-19 06:53] LABS: BUN/Creatinine Ratio 55.3 (10.0-20.0); Blood Urea Nitrogen 26 mg/dL (9-23); Glucose 244 mg/dL (74-106)
[2023-11-19 06:55] LABS: Carbon Dioxide > 40 mmol/L (20-30)
[2023-11-19 06:56] LABS: Band Neutrophils % (manual) 0; Basophils % (manual) 0 (0.0-2.0); Blast Cells 0; Eosinophils % (manual) 0 (0-7); Metamyelocytes % 0; Myelocytes % 0; Promyelocytes % 0; Reactive Lymphocytes 0
[2023-11-19 11:07] LABS: Lymphocytes % (manual) 9 (10.0-50.0); Monocytes % (manual) 13 (0-12); Platelet Estimate Adequate
[2023-11-19] MEDS: ACETAMINOPHEN 325 MG TAB PO PRN (17:00)
[2023-11-19] MEDS: DOCUSATE SOD 100 MG CAP PO PRN (18:39)
[2023-11-19] MEDS: hydrALAZINE HCL 20 MG/ML VL IV PRN (18:39)
[2023-11-20] VITALS (18 sets, daily range): BP systolic 109–157; BP diastolic 61–76; PULSE 75–111; RESP 16–20; TEMP 36.8; O2SAT 92–100
[2023-11-20 05:28] LABS: Hematocrit 25.6 % (36.0-46.0); Hemoglobin 8.5 g/dL (12.2-16.2); Mean Corpuscular Hemoglobin 30.5 pg (28.0-32.0); Mean Corpuscular Hgb Conc. 33.1 g/dL (32.0-36.0); Mean Corpuscular Volume 92.1 fL (80.0-100.0); Red Blood Cells 2.78 10^6/uL (4.0-5.20); Red Cell Distribution Width 15.6 % (11.8-14.3); White Blood Cell 3.8 10^3/uL (4.4-10.8)
[2023-11-20 05:30] LABS: Chloride 92 mmol/L (98-107); Potassium 3.6 mmol/L (3.5-5.1); Sodium 139 mmol/L (136-145)
[2023-11-20 05:32] LABS: Calcium 8.3 mg/dL (8.7-10.4)
[2023-11-20 05:34] LABS: Band Neutrophils % (manual) 0; Basophils % (manual) 0 (0.0-2.0); Blast Cells 0; Eosinophils % (manual) 0 (0-7); Metamyelocytes % 0; Myelocytes % 0; Promyelocytes % 0; Reactive Lymphocytes 0
[2023-11-20 05:36] LABS: Glucose 274 mg/dL (74-106)
[2023-11-20 05:37] LABS: BUN/Creatinine Ratio 64.3 (10.0-20.0); Blood Urea Nitrogen 27 mg/dL (9-23); Magnesium 1.7 mg/dL (1.6-2.6)
[2023-11-20 05:56] LABS: Anion Gap 6.99999 (5-15); Carbon Dioxide > 40 mmol/L (20-30)
[2023-11-20 07:36] LABS: Rapid Influenza A Negative (Negative); Rapid Influenza B Negative (Negative)
[2023-11-20 08:01] LABS: Lymphocytes % (manual) 20 (10.0-50.0); Monocytes % (manual) 15 (0-12)
[2023-11-20 08:03] LABS: Ovalocytes MODERATE
[2023-11-20 08:08] LABS: Platelet Estimate Adequate
[2023-11-20] MEDS: MAGNESIUM OXIDE 400 MG TAB PO ONE (08:53)
[2023-11-20] MEDS ORDERED: PRED20TA2 PO (10:48)
[2023-11-20] MEDS: POLYETHYLENE GLYCOL 17 GM PWDR PO PRN (14:52)
[2023-11-21] MEDS ORDERED: MAGNESIUM OXIDE 400 MG TAB PO ONE (07:45)
== END 2023-11-20 20:10 | disposition home health service (06) | DRG 871 ==
LOC: ER 04:50 → EDBD 04:50 → TELE 09:08 → TELE-EAST 20:00 → DOU IN ICU 11-17 13:48 → TELE-CENTR 11-19 17:48
PROVIDERS: ADMIT Internal Medicine; ATTEND Internal Medicine
PROC: 5A09357 Assistance with Respiratory Ventilation, Less than 24 Consecutive Hours, Continuous Positive Airway Pressure (ICD-10-PCS; principal; 2023-11-16)
PROC: 5A09357 Assistance with Respiratory Ventilation, Less than 24 Consecutive Hours, Continuous Positive Airway Pressure (ICD-10-PCS; 2023-11-17)
PROC: 5A09357 Assistance with Respiratory Ventilation, Less than 24 Consecutive Hours, Continuous Positive Airway Pressure (ICD-10-PCS; 2023-11-18)
PROC: 5A09357 Assistance with Respiratory Ventilation, Less than 24 Consecutive Hours, Continuous Positive Airway Pressure (ICD-10-PCS; 2023-11-19)
DX: A41.9 Sepsis, unspecified organism (principal); I50.33 Acute on chronic diastolic (congestive) heart failure; J10.08 Influenza due to other identified influenza virus with other specified pneumonia; J96.01 Acute respiratory failure with hypoxia; J96.02 Acute respiratory failure with hypercapnia; J12.9 Viral pneumonia, unspecified; J44.1 Chronic obstructive pulmonary disease with (acute) exacerbation; E46 Unspecified protein-calorie malnutrition; I69.351 Hemiplegia and hemiparesis following cerebral infarction affecting right dominant side; Z68.41 Body mass index [BMI] 40.0-44.9, adult; J44.0 Chronic obstructive pulmonary disease with (acute) lower respiratory infection; N39.0 Urinary tract infection, site not specified; J90 Pleural effusion, not elsewhere classified; Z20.822 Contact with and (suspected) exposure to COVID-19; D64.9 Anemia, unspecified; E66.01 Morbid (severe) obesity due to excess calories; F41.9 Anxiety disorder, unspecified; I11.0 Hypertensive heart disease with heart failure; I48.0 Paroxysmal atrial fibrillation; K59.00 Constipation, unspecified; I25.10 Atherosclerotic heart disease of native coronary artery without angina pectoris; F32.A Depression, unspecified; Z88.1 Allergy status to other antibiotic agents; Z91.041 Radiographic dye allergy status; Z91.040 Latex allergy status; Z88.5 Allergy status to narcotic agent; Z91.018 Allergy to other foods; Z91.010 Allergy to peanuts; Z91.013 Allergy to seafood; Z88.8 Allergy status to other drugs, medicaments and biological substances; Z95.0 Presence of cardiac pacemaker; Z90.710 Acquired absence of both cervix and uterus; Z90.13 Acquired absence of bilateral breasts and nipples; Z88.0 Allergy status to penicillin; Z88.6 Allergy status to analgesic agent; Z79.01 Long term (current) use of anticoagulants; Z79.899 Other long term (current) drug therapy; Z99.81 Dependence on supplemental oxygen; Z74.01 Bed confinement status; Z87.891 Personal history of nicotine dependence; Z85.3 Personal history of malignant neoplasm of breast
CPT/HCPCS: 36415; 36600; 71045; 73560; 76604; 78582; 80048; 80053; 80061; 80076; 80307; 81001; 82306; 82607; 82746; 82805; 83010; 83036; 83540; 83550; 83605; 83615; 83735; 83880; 84100; 84443; 84484; 85007; 85025; 85027; 85045; 85379; 85610; 86141; 86850; 86900; 86901; 87040; 87081; 87426; 87804; 93005; 93970; 94640; 94660; 94668; 97110; 97163; 97530; C9113; G0378; J2185